=== PATIENT | female | born 1940 | race Caucasian/White ===

== ENCOUNTER → 2021-03-28 | Outpatient (CLI) | payer MEDICARE ==
[~2021-03-28] MED LIST: ACHYD1T PO; AMLO-251 PO; CLOP75TA28 PO; FAMO40TA72 PO; LOSA1TAB23 PO; PANT40TA52 PO; SUCR1TAB PO; TRAM50TA3 PO
--- NOTE | 2021-04-04 08:06 | Diagnostic Imaging Report ---
INDICATION: Esophageal cancer, initial staging. TECHNIQUE: The serum blood glucose level at the time of injection was 89 mg/dL. The patient was administered 13.9 mCi of F-18 FDG intravenously in the right antecubital location and PET imaging was performed from the top of the skull to the mid thighs. A noncontrast CT was also performed for attenuation correction and anatomic correlation. COMPARISON: No prior PET/CT studies are available for comparison. Correlation is made with a conventional outside CT from 03/03/2021. FINDINGS: There is symmetric activity throughout the brain. The soft tissues of the neck are unremarkable. There is hypermetabolic activity involving the distal esophagus where the patient also has a large hiatal hernia. The SUV max is 7.6 and likely represents patient's known recently diagnosed esophageal malignancy. No other mediastinal hyperactivity is seen; however, there is significant consolidation in the right middle lobe with air bronchograms seen on the outside CT. A portion of this is hypermetabolic with an SUV max of 10, suggestive of malignancy as well. No other pulmonary parenchymal hyperactivity is seen. The abdomen and pelvis demonstrate physiologic activity throughout the GI and tracts. No suspicious region of hypermetabolism is identified. IMPRESSION: Increased metabolic activity involving the distal esophagus is consistent with the known recently diagnosed malignancy. In addition, there is abnormal metabolic activity in the right middle lobe. There is significant consolidation as well as air bronchograms at this location. While a portion of this may be inflammatory/infectious, underlying malignancy could not be entirely excluded. Close CT chest followup after a course of therapy would be recommended. Dictated by: Dictated on workstation # [id number]
== END ==
LOC: RAD 14:26
PROVIDERS: ATTEND Radiology Radiation Oncology
DX: C15.9 Malignant neoplasm of esophagus, unspecified (principal)
CPT/HCPCS: 78815; A9552

== ENCOUNTER 2021-04-03 05:41 | Outpatient (CLI) | payer MEDICARE ==
[~2021-04-03] VITALS: Ht 165.1 cm; Wt 87.7 kg
[2021-04-03] MEDS ORDERED: ACHYD1T PO (12:58)
[2021-04-03] MEDS ORDERED: CLOP75TA28 PO (12:58)
[2021-04-03] MEDS ORDERED: SUCR1TAB PO (12:58)
[2021-04-03] MEDS ORDERED: AMLO-251 PO (12:58)
[2021-04-03] MEDS ORDERED: PANT40TA52 PO (12:58)
[2021-04-03] MEDS ORDERED: FAMO40TA72 PO (12:58)
[2021-04-03] MEDS ORDERED: TRAM50TA3 PO (12:58)
[2021-04-03] MEDS ORDERED: LOSA1TAB23 PO (12:58)
== END 2021-04-03 13:02 | disposition home or self-care (01) ==
LOC: PREOP 05:41
PROVIDERS: ATTEND Surgery
DX: Z01.818 Encounter for other preprocedural examination (principal)

== ENCOUNTER 2021-04-05 07:20 | Day surgery (SDC) | payer MEDICARE ==
[~2021-04-05] VITALS: Ht 165 cm; Wt 87.7 kg
[2021-04-05] VITALS (9 sets, daily range): BP systolic 132–166; BP diastolic 58–77
--- OUTSIDE RECORDS SUMMARY | 2021-04-05 07:23 | XMS REPORT | Clinical Summary ---
Author Author [facility] Organization [facility] Address Unknown Phone Unavailable Care Team Providers Care Parts Sales Manager Name Role Phone PCP Unavailable Allergies Not on File Medications Not on file Active Problems Not on file Social History Date Tobacco Use Types Packs/Day Years Used Never Assessed Sex Assigned at Date Recorded Not on file Last Filed Vital Signs Not on file Plan of Treatment Not on file Results Not on filefrom Last 3 Months
--- OUTSIDE RECORDS SUMMARY | 2021-04-05 07:24 | XMS REPORT | Encounter Summary ---
Author Author [facility] Organization [facility] Address Unknown Phone Unavailable Care Team Providers Care Sonar Watchstander Name Role Phone Rashmi Rock NP Unavailable Rashmi Rock NP PCP Matthew Woods MD Unavailable Gurvinder Chan MD Unavailable Reason for Referral * Radiology Services (Routine) - New Request Diagnoses / Procedures Referred By Contact [facility] Diagnoses Malignant neoplasm of esophagus, unspecified location (HCC) Malignant neoplasm of lower third of esophagus (HCC) Procedures NM PET SCAN TORSO (SKULL-THIGHS) Gold Shipley MD [address] [address] Radiology Referral ID Status Reason Start Date Expiration Visits Vi sits Date Requested Authorized [id number] New Request 03/21/2021 03/21/2022 7 7 SSIBILITY LIFT TECHNICIAN Encounter Details Care Team Description Date Type Department Gold Shipley MD [address] [id number] Malignant neoplasm of esophagus, unspeci fied location (HCC) (Primary Dx); Malignant neoplasm of lower third of esophagus (HCC) 03/21/2021 Orders Only Cardiothoracic Surg nito: [facility] [address] [facility] [address] [place] [address] Social History Date Tobacco Use Types Packs/Day Years Used Never Smoker Smokeless Tobacco: Never Used Comments Alcohol Use Standard Drinks/Week No 0 (1 standard drink = 0.6 o z pure alcohol) Sex Assigned at Date Recorded Female 03/21/2021 9:32 AM ACCESSIBILITY LIFT TECHNICIAN documented as of this encounter Functional Status Date of Assessment Functional Status Response 12/31/2016 Does the patient have a hearing impairment: Yes documented as of this encounter Plan of Treatment Order Schedule Name Type Priority Associated Diag noses Expected: 03/28/2021 (Approximate), Expi res: 03/21/2022 NM PET SCAN TORSO Imaging Routine Malignant ne oplasm of (SKULL-THIGHS) esophagus, unspecified location (HCC) Malignant neoplasm of lower third of esophagus (HCC) documented as of this encounter Visit Diagnoses Diagnosis Malignant neoplasm of esophagus, unspec ified location (HCC) - Primary Malignant neoplasm of lower third of es ophagus (HCC) Malignant neoplasm of lower third of es ophagus documented in this encounter Additional Health Concerns Noted Time Assessment 03/20/2021 5:00 PM ACCESSIBILITY LIFT TECHNICIAN A fall risk assessment has been complet ed for the patient documented as of this encounter Care Teams Start Date End Date Sonar Watchstander Relationship Specialty 03/21/21 Rashmi Rock NP PCP - General Nurse [address] [place] [address] , Family 03/20/21 Rashmi Rock NP Nurse [address] [place] [address] , Family 03/21/21 Matthew Woods MD Hematology & [address] [facility] [place] [address] 03/21/21 Gurvinder Chan MD [facility] [address] [place] [address] [address] [address] documented as of this encounter
--- OUTSIDE RECORDS SUMMARY | 2021-04-05 07:24 | XMS REPORT | Encounter Summary ---
Author Author [facility] Organization [facility] Address Unknown Phone Unavailable Care Team Providers Care Planer Setter Name Role Phone Rashmi Rock NP Unavailable Rashmi Rock NP PCP Matthew Woods MD Unavailable Gurvinder Chan MD Unavailable Reason for Visit * Reason Comments New Patient * Consult, Test & Treat (Routine) - New Request Diagnoses / Procedures Referred By Contact Referred To [facility] Specialty Matthew Woods MD [address] [place] [address] Gold Shipley MD [address] [address] Cardiothoracic Surgery Referral ID Status Reason Start Date Expiration Visits Vi sits Date Requested Authorized [id number] New Request 03/20/2021 03/20/2022 1 1 Encounter Details Care Team Description Date Type Department Gold Shipley MD [address] [facility] [place] [address] History of fundoplication (Primary Dx); 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); Physical deconditioning; Other chronic pain 03/22/2021 Office Visit Cardiothoracic Surg nito: [facility] [address] [facility] [address] [place] [id number] Social History Date Tobacco Use Types Packs/Day Years Used Never Smoker Smokeless Tobacco: Never Used Comments Alcohol Use Standard Drinks/Week No 0 (1 standard drink = 0.6 o z pure alcohol) Sex Assigned at Date Recorded Female 03/21/2021 9:32 AM TONGUE AND GROOVE MACHINE SETTER Date Recorded COVID-19 Exposure Response 03/22/2021 9:22 AM TONGUE AND GROOVE MACHINE SETTER In the last month, have you been in contact with No / Unsure someone who was confirmed or suspected to have Coronavirus / COVID-19? documented as of this encounter Last Filed Vital Signs Reading Time Taken Comments Vital Sign 136/70 03/22/2021 10:50 AM TONGUE AND GROOVE MACHINE SETTER Blood Pressure 104 03/22/2021 10:50 AM TONGUE AND GROOVE MACHINE SETTER Pulse 36.6 C (97.8 F) 03/22/2021 10:50 AM TONGUE AND GROOVE MACHINE SETTER Temperature - - Respiratory Rate 98% 03/22/2021 10:50 AM TONGUE AND GROOVE MACHINE SETTER Oxygen Saturation - - Inhaled Oxygen Concentration 87.6 kg (193 lb 3.2 oz) 03/22/2021 10:50 AM TONGUE AND GROOVE MACHINE SETTER Weight 165.1 cm (5' 5") 03/22/2021 10:50 AM TONGUE AND GROOVE MACHINE SETTER Height 32.15 03/22/2021 10:50 AM TONGUE AND GROOVE MACHINE SETTER Body Mass Index documented in this encounter Functional Status Date of Assessment Functional Status Response 12/31/2016 Does the patient have a hearing impairment: Yes documented as of this encounter Progress Notes * Gold Shipley MD - 03/22/2021 10:30 AM TONGUE AND GROOVE MACHINE SETTER Images from the original note were not included. Date of Service: 03/22/2021 Name: Connie Shukla : 1940 Referring Provider: Matthew Woods PCP: Rashmi Rock Via [facility] - PCP: Dr. Gabriel Davis - Other: Dr. Gurvinder Chan - [facility] - [phone] Location of Films: PACS Location of Pathology: [facility] 02/20/21 - Chief Complaint Patient presents with New Patient History of Present Illness Connie Shukla is a 80 y.o. female who presents for surgical evaluation of newly diag nosed gastric/esophageal cancer, adenocarcinoma, staged T3N1 by outside EUS. History of Present Illness: 80yo female s/p Laparoscopic exploration and lysis of adhesions followed by a le ft thoracotomy and a Elissa-Belsey fundoplication on 12/31/16 at due to recurr ent hernia after prior Anna Marie. She reports about 3 weeks following the surgery s he developed significant heart burn. Then a couple months ago it became harder t o swallow both food and water. She reports that she has a lot of back pain, specifically after a fall in 2019 s he has a lot in the right hip which she finds it hard to deal with. She recently finished Z mackenzie prescribed for apparent pneumonia noted on the recent CT chest. She has not yet started treatment. She reports dysphagia to solid foods. She als o reports history of appendectomy and afterward having trouble with abdominal pa in which required a large incision for exploratory laparotomy and that significa nt adhesiolysis was performed. Last evening she had a series of loose dark color ed bowel movements which is concerning to her due to history of a significant up per GI bleed in 2019. She has history of TIA several years ago for which she sti ll takes Plavix. She denies cough, hemoptysis, shortness of air, chest pain, a bdominal pain, fevers, chills, night sweats, unintentional weight loss, new head aches, and bone pain. PMH: GERD, fundoplication x 2, Rivera's esophagus, TIA, dysphagia. 02/20/21 - CEA = 5.3 02/20/21 - UPPER ENDOSCOPY w/BX - mass at GE junction - PATHOLOGY - gastric cardia- invasive well diff adenocarcinoma arising within a background of Rivera's mucosa STAGING 03/03/21 - CT CHEST/ABD/PELVIS - no evidence of metastatic disease - thickened d istal esophagus - RML consolidation consistent with pneumonia. 03/13/21 - UPPER EUS - GE junction tumor that extended from the distal esophagus into the cardia - mass involves 1/2 to 2/3 of the luminal surface - T3 lesion. T wo high suspicious nodes immediately adjacent to the tumor - 04/12/21 - PET scheduled to be done in [place] Patient has consults set up in [place] with Dr. Woods (04/13) and a radiation oncologist there. History Medical History: Diagnosis Date Arthritis Rivera's esophagus Dysphagia Failed fundoplication H/O degenerative disc disease Hiatal hernia Hyperlipidemia Hypertension TIA (transient ischemic attack) 07/2015 multiple others Surgical History: Procedure Laterality Date FOOT SURGERY Right 1996 plantar fascitits MANOMETRY ESOPHAGEAL N/A 09/27/2016 Performed by Cris Guerra MD at [facility] 24Hr Ph Probe N/A 09/27/2016 Performed by Cris Guerra MD at [facility] EXPLORATORY LAPAROSCOPY N/A 12/31/2016 Performed by Gold Shipley MD at [facility] CVOR THORACOTOMY WITH ELISSA BELSEY FUNDOPLICATION Left 12/31/2016 Performed by Gold Shipley MD at [facility] CVOR ESOPHAGOGASTRODUODENOSCOPY N/A 07/03/2017 Performed by Gold Shipley MD at [facility] CVOR CARDIAC CATHERIZATION Normal 1987 GASTRIC FUNDOPLICATION 2002 approx HIP REPLACEMENT Bilateral 2000, 2007 left-2000, right-2007 HX APPENDECTOMY Social History Socioeconomic History Marital status: Spouse name: Not on file Number of children: Not on file Years of education: Not on file Highest education level: Not on file Occupational History Not on file Tobacco Use Smoking status: Never Smoker Smokeless tobacco: Never Used Substance and Sexual Activity Alcohol use: No Drug use: Never Sexual activity: Not on file Other Topics Concern Not on file Social History Narrative Not on file Family History Problem Relation Age of Onset Heart Failure Mother Diabetes Mother Other Mother umbilical hernia ruptured Allergies Allergen Reactions Penicillins HIVES and DIZZINESS Contrast Dye Iv, Iodine Containing [Iodinated Contrast Media] HIVES renograffin 1987 Crestor [Rosuvastatin] MUSCLE PAIN Zocor [Simvastatin] MUSCLE PAIN Avinza [Morphine] NAUSEA ONLY Immunization History Administered Date(s) Administered COVID-19 (MODERNA), mRNA vacc, 100 mcg/0.5 mL (PF) 07/06/2020, 08/03/2020 Medications: amLODIPine (NORVASC) 10 mg tablet Take 10 mg by mouth daily. cholecalciferol (VITAMIN D-3) 1,000 units tablet Take 1,000 Units by mouth d aily. clopiDOGrel (PLAVIX) 75 mg tablet Take 75 mg by mouth daily. docusate (COLACE) 100 mg capsule Take 100 mg by mouth twice daily. fish oil- omega 3-DHA/EPA 300/1,000 mg capsule Take 1 capsule by mouth daily . HYDROcodone/acetaminophen (NORCO) 5/325 mg tablet Take 1 tablet by mouth shmuel ry 4 hours as needed for Pain losartan-hydrochlorothiazide (HYZAAR) 100-25 mg tablet Take 1 Tab by mouth e very morning. meclizine (ANTIVERT) 25 mg tablet Take 25 mg by mouth three times daily as n eeded for Dizziness. Indications: MOTION SICKNESS ondansetron (ZOFRAN) 4 mg tablet Take 4 mg by mouth every 8 hours as needed for Nausea or Vomiting. ranitidine(+) (ZANTAC) 300 mg tablet Take 300 mg by mouth at bedtime daily. tramadol(#) (ULTRAM) 5 mg/mL suspension Take 10-20 mL by mouth every 6 hours as needed. I have reviewed the [facility] meds and they are correct. Anti-coagulation: clopidogrel (Plavix) Occupation: retired Functional Assessment ECOG Performance Status: 1, Restricted in physically strenuous activity but ambu latory and able to carry out work of a light or sedentary nature, e.g., light ho use work, office work Pain Scale (0 = No Pain, 10 = Severe Pain): 0 Comments/Interventions: n/a Clinical Nutrition Status PO Intake compared to normal: Dysphagia to solids Weight loss last 3 months: 0 lbs Estimated body mass index is 32.15 kg/m as calculated from the following: Height as of this encounter: 1.651 m (5' 5"). Weight as of this encounter: 87.6 kg (193 lb 3.2 oz). BMI class: Obesity 1 (30 to <35) Patient demonstrates no malnutrition ROS Review of Systems Constitutional: Negative. HENT: Negative. Eyes: Negative. Cardiovascular: Negative. Respiratory: Positive for cough and sputum production. Endocrine: Negative. Hematologic/Lymphatic: Negative. Skin: Negative. Musculoskeletal: Negative. Gastrointestinal: Negative. Genitourinary: Negative. Neurological: Negative. Psychiatric/Behavioral: Negative. Allergic/Immunologic: Negative. Review of systems Obtained from patient Physical Exam Constitutional: She appears well-developed and well-nourished. HENT: Head: Normocephalic. Cardiovascular: Normal rate, regular rhythm and normal heart sounds. Pulmonary/Chest: Effort normal and breath sounds normal. Musculoskeletal: General: Normal range of motion. Cervical back: Neck supple. Lymphadenopathy: She has no cervical adenopathy. Neurological: She is alert and oriented to person, place, and time. Skin: Skin is warm and dry. Psychiatric: She has a normal mood and affect. Her behavior is normal. Judgment and thought content normal. Objective Vitals: 03/22/21 1050 BP: 136/70 Pulse: 104 Temp: 36.6 C (97.8 F) SpO2: 98% Lab Results No pertinent labs Summary of Studies Reviewed: as above in HPI Primary Diagnosis: Encounter Diagnoses Name Primary? 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 Tumor is malignant Assessment and Plan 1. History of fundoplication 2. 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 Physical deconditioning 4. Other chronic pain Dr. Gold Shipley has reviewed this patient's most recent procedures and history and will speak to her oncologist. Esophagectomy may present a challenge due to her prior Elissa-Belsey fundoplication. She also admits to being physica lly deconditioned and having trouble with her chronic back and hip pain. Dr. Phong Shipley will reach out to her oncologist directly to discuss her case . Bhavana Argueta, ZAKI-Judi Thoracic Surgery and Lung Cancer Screening I personally performed the davis portions of the E/M visit, discussed case with Nu rse Practitioner and concur with documentation of history, physical exam, assess ment, and treatment plan unless otherwise noted. My synopsis: This is a 80-year-old patient known to me. Several years ago I had treated her for very large hiatal hernia utilizing a Elissa Belsey strategy. The patient re ports that she had excellent reflux control for several years. She sought the a ttention of her primary care physician after experiencing dysphagia within the l ast 2 months. She is ultimately diagnosed with what appears to be locally advan vishal esophageal cancer. I am also concerned about the infiltrative process in he r right middle lobe. She has no symptoms of pneumonia. She is completing a cou rse of antibiotics. The PET scan has not been completed. I am concerned that s he has far more advanced stage disease. The most important aspect of our meeting today was to discuss her performance st atus. She is markedly limited in her activities. She has barely leaving her ho me. She is unable to walk around her local [employer]. After assessing the patien t's activities of daily living, I do not think that she would be fit for treatme nt incorporating major esophageal resection. Nor does she or her think that she would tolerate a major intervention. I will speak with her oncologist regarding these issues. Is unclear to me if she would even tolerate a definitiv e chemotherapy and radiation strategy. I had the opportunity speak with Dr. Daniel who will be her oncologist. Given the Elissa gastroplasty, tumor that is felt to be at the "GE junction" may in fa ct be well below the cardia of the stomach. What we are seeing may in fact to b e a true gastric cancer. This may determine optimal chemotherapy regimen. 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 Take with food. documented as of this encounter Additional Health Concerns Noted Time Assessment 03/22/2021 10:47 AM TONGUE AND GROOVE MACHINE SETTER A fall risk assessment has been complet ed for the patient 03/22/2021 10:49 AM TONGUE AND GROOVE MACHINE SETTER PHQ-2 Depression Total Score: 0 documented as of this encounter Care Teams Start Date End Date Planer Setter Relationship Specialty 03/21/21 Rashmi Rock NP PCP - General Nurse [address] [place] [address] , Family 03/20/21 Rashmi Rock NP Nurse [address] [place] [address] , Family 03/21/21 Matthew Woods MD Hematology & [address] [facility] [place] [address] 03/21/21 Gurvinder Chan MD [facility] [address] [place] [address] DR [address] [address] documented as of this encounter
--- OUTSIDE RECORDS SUMMARY | 2021-04-05 07:24 | XMS REPORT | Encounter Summary ---
Author Author [facility] Organization [facility] Address Unknown Phone Unavailable Care Team Providers Care Nurse General Duty Name Role Phone Rashmi Rock NP Unavailable Rashmi Rock NP PCP Matthew Woods MD Unavailable Gurvinder Chan MD Unavailable Reason for Visit * Radiology Services (Routine) - Authorized Diagnoses / Procedures [facility]erred By [facility] Malignant neoplasm of esophagus, unspecified location (HCC) Procedures IR PORTACATH PLACEMENT IR CENTRAL VENOUS CATHETER Gold Shipley MD [address] [facility] [place] [address] [facility] Ir [address] [facility] [address], [address] [place] [address] Radiology Referral ID Status Reason Start Date Expiration Visits Vi sits Date Requested Authorized [id number] Authorized 03/21/2021 03/21/2022 1 1 Encounter Details Care Team Description Date Type Department Gold hSipley MD [address] [facility] [address] [place] [address] Canceled (Office-Referring provider liz davalos) 03/28/2021 Hospital Interventional Radi ology: Encounter [facility] [address] [facility] [address], [address] [place] [address] Social History Date Tobacco Use Types Packs/Day Years Used Never Smoker Smokeless Tobacco: Never Used Comments Alcohol Use Standard Drinks/Week No 0 (1 standard drink = 0.6 o z pure alcohol) Sex Assigned at Date Recorded Female 03/21/2021 9:32 AM BEHAVIORAL HEALTH THERAPIST Date Recorded COVID-19 Exposure Response 03/22/2021 9:22 AM BEHAVIORAL HEALTH THERAPIST In the last month, have you been in contact with No / Unsure someone who was confirmed or suspected to have Coronavirus / COVID-19? documented as of this encounter Functional Status Date of Assessment Functional Status Response 12/31/2016 Does the patient have a hearing impairment: Yes documented as of this encounter Medications at Time of Discharge Start Date End Date Medication Sig Dispensed Refills amLODIPine (NORVASC) 10 Take 10 mg by 0 mg tablet mouth daily. cholecalciferol (VITAMIN Take 1,000 0 D-3) 1,000 units tablet Units by mouth daily. clopiDOGrel (PLAVIX) 75 Take 75 mg by 0 mg tablet mouth daily. docusate (COLACE) 100 mg Take 100 mg 0 capsule by mouth twice daily. fish oil- omega 3-DHA/EPA Take 1 0 300/1,000 mg capsule capsule by mouth daily. HYDROcodone/acetaminophen Take 1 tablet 0 (NORCO) 5/325 mg tablet by mouth every 4 hours as needed for Pain losartan-hydrochlorothiaz Take 1 Tab by 0 elle (HYZAAR) 100-25 mg mouth every tablet morning. meclizine (ANTIVERT) 25 Take 25 mg by 0 mg tabletIndications: mouth three motion sickness times daily as needed for Dizziness. Indications: MOTION SICKNESS ondansetron (ZOFRAN) 4 mg Take 4 mg by 0 tablet mouth every 8 hours as needed for Nausea or Vomiting. ranitidine(+) (ZANTAC) Take 300 mg 0 300 mg tablet by mouth at bedtime daily. 01/05/2017 tramadol(#) (ULTRAM) 5 Take 10-20 mL 400 mL 0 mg/mL suspension by mouth every 6 hours as needed. documented as of this encounter Discharge Disposition Code Departure Means Destination Disposition Home Home or Self Care documented in this encounter Progress Notes * Wilber Dodd RN - 03/28/2021 9:00 AM BEHAVIORAL HEALTH THERAPIST Interventional Radiology Outpatient Scheduling Checklist 1. Name of Procedure(s): Port Placement. Appointment scheduled by Seda Michelle with [facility]. Patient will come to IR from [facility] around 0800 and will need to return once Recovery is completed. Leave port accessed. 2. Date of Procedure: 03/28/2021 3. Arrival Time: Approx 0800 from [facility] 4. Procedure Time: 0900 5. Correct Procedural Room Assignment: [facility] Room #3 6. Blood Thinners Triaged and instructed per protocol: Y/N/NA: Patient on Pl avix. [facility] will manage. Confirmed accurate instructions sent to patient: Y/N: NO 7. Procedure Order Verified: Y/N: Yes 9. Patient instructed to have a rental car ferry driver: Y/N/NA: Yes 10. Patient instructed on NPO status: Y/N/NA: Yes Defer to [facility] usually Midni ght Confirmed accurate instructions sent to patient: Y/N: NO 11. Specimen needed: Y/N/NA: NO Verified Order placed: Y/N: N/A 12. Allergies Verified: Y/N: Yes 13. Is there an Iodine Allergy: Y/N: YES Does the Procedure Require contrast: Y/N: NO If so, was the IR- Contrast Allergy Pre-Procedure Medication protocol ordered: Y /NA: NA 14. Does the patient have labs according to IR Pre-procedure Laboratory Paramet er policy: Y/N/NA: Yes If No, was the patient instructed to obtain labs prior to procedure: Y/N/NA: NA 15. Will the patient need to be admitted or have a possible admission: Y/N: No If yes, confirmed accurate instructions sent to patient: Y/N/NA: NA 16. Patient States Understanding: Y/N: Yes 17. History of GREG: Y/N: Unknown If yes, confirm request to bring CPAP sent to patient: Y/N/NA: NA 18. Does the patient have an insulin pump or continuous glucose monitor? Y/N Un known If yes, was the patient instructed that this will need to be removed for this p rocedure and to bring supplies to reapply once the procedure is complete? Y/N 19. Patient was sent electronic procedure instructions: Y/N: NO [facility]OR will daniels dle communication with patient. VIORAL HEALTH THERAPIST documented in this encounter Plan of Treatment Not on filedocumented as of this encounter Visit Diagnoses Not on filedocumented in this encounter Additional Health Concerns Noted Time Assessment 03/22/2021 10:47 AM BEHAVIORAL HEALTH THERAPIST A fall risk assessment has been complet ed for the patient 03/22/2021 10:49 AM BEHAVIORAL HEALTH THERAPIST PHQ-2 Depression Total Score: 0 documented as of this encounter Care Teams Start Date End Date Nurse General Duty Relationship Specialty 03/21/21 Rashmi Rock NP PCP - General Nurse [address] [place] [phone] , Family 03/20/21 Rashmi Rock NP Nurse [address] [place] [address] , Family 03/21/21 Matthew Woods MD Hematology & [address] [facility] [place] [address] 03/21/21 Gurvinder Chan MD [facility] [address] [place] [address] [address] [address] documented as of this encounter
--- OUTSIDE RECORDS SUMMARY | 2021-04-05 07:24 | XMS REPORT | Encounter Summary ---
Author Author [facility] Organization [facility] Address Unknown Phone Unavailable Care Team Providers Care International Travel Consultant Name Role Phone Rashmi Rock NP Unavailable Rashmi Rock NP PCP Matthew Woods MD Unavailable Gurvinder Chan MD Unavailable Encounter Details Care Team Description Date Type Department 03/22/2021 Travel Social History Date Tobacco Use Types Packs/Day Years Used Never Smoker Smokeless Tobacco: Never Used Comments Alcohol Use Standard Drinks/Week No 0 (1 standard drink = 0.6 o z pure alcohol) Sex Assigned at Date Recorded Female 03/21/2021 9:32 AM TURKEY PINNER Date Recorded COVID-19 Exposure Response 03/22/2021 9:22 AM TURKEY PINNER In the last month, have you been in contact with No / Unsure someone who was confirmed or suspected to have Coronavirus / COVID-19? documented as of this encounter Functional Status Date of Assessment Functional Status Response 12/31/2016 Does the patient have a hearing impairment: Yes documented as of this encounter Plan of Treatment Not on filedocumented as of this encounter Visit Diagnoses Not on filedocumented in this encounter Additional Health Concerns Noted Time Assessment 03/22/2021 10:47 AM TURKEY PINNER A fall risk assessment has been complet ed for the patient 03/22/2021 10:49 AM TURKEY PINNER PHQ-2 Depression Total Score: 0 documented as of this encounter Care Teams Start Date End Date International Travel Consultant Relationship Specialty 03/21/21 Rashmi Rock NP PCP - General Nurse [address] [place] [phone] , Family 03/20/21 Rashmi Rock NP Nurse [address] [place] , Family 03/21/21 Matthew Woods MD Hematology & [address] [facility] [place] [address] 03/21/21 Gurvinder Chan MD [facility] [address] [address] documented as of this encounter
--- OUTSIDE RECORDS SUMMARY | 2021-04-05 07:24 | XMS REPORT | Encounter Summary ---
Author Author [facility] Organization [facility] Address Unknown Phone Unavailable Care Team Providers Care Fitter / Welder Name Role Phone Rashmi Rock NP Unavailable Rashmi Rock NP PCP Matthew Woods MD Unavailable Gurvinder Chan MD Unavailable Reason for Referral * Radiology Services (Routine) - Authorized Diagnoses / Procedures Referred By [facility] Malignant neoplasm of esophagus, unspecified location (HCC) Procedures IR PORTACATH PLACEMENT IR CENTRAL VENOUS CATHETER Gold Shipley MD [address] [facility] [address] [place] [address] 2 Ir [address] [facility] [address], [address] [place] [address] Radiology Referral ID Status Reason Start Date Expiration Visits Vi sits Date Requested Authorized [id number] Authorized 03/21/2021 03/21/2022 1 1 HER FLESHER Encounter Details Care Team Description Date Type Department Seda Michelle, NANCY Malignant neoplasm of esophagus, unspeci fied location (HCC) (Primary Dx) 03/21/2021 Orders Only Cardiothoracic Surg nito: [facility], [facility] [address] [facility] [address] [place] [address] Social History Date Tobacco Use Types Packs/Day Years Used Never Smoker Smokeless Tobacco: Never Used Comments Alcohol Use Standard Drinks/Week No 0 (1 standard drink = 0.6 o z pure alcohol) Sex Assigned at Date Recorded Female 03/21/2021 9:32 AM LEATHER FLESHER documented as of this encounter Functional Status Date of Assessment Functional Status Response 12/31/2016 Does the patient have a hearing impairment: Yes documented as of this encounter Plan of Treatment Order Schedule Name Type Priority Associated Diag noses Expected: 03/21/2021 (Approximate), Expi res: 03/21/2022 IR PORTACATH PLACEMENT Imaging Routine Maligna nt neoplasm of esophagus, unspecified location (HCC) documented as of this encounter Visit Diagnoses Diagnosis Malignant neoplasm of esophagus, unspec ified location (HCC) - Primary documented in this encounter Additional Health Concerns Noted Time Assessment 03/20/2021 5:00 PM LEATHER FLESHER A fall risk assessment has been complet ed for the patient documented as of this encounter Care Teams Start Date End Date Fitter / Welder Relationship Specialty 03/21/21 Rashmi Rock NP PCP - General Nurse [address] [place] [phone] , Family 03/20/21 Rashmi Rock NP Nurse [address] [place] [address] , Family 03/21/21 Matthew Woods MD Hematology & [address] [facility] [place] [address] 03/21/21 Gurvinder Chan MD [facility] [address] [place] [address] [address] [address] documented as of this encounter
--- OUTSIDE RECORDS SUMMARY | 2021-04-05 07:24 | XMS REPORT | Clinical Summary ---
Author Author [facility] Organization [facility] Address Unknown Phone Unavailable Care Team Providers Care Crushing Machine Operator Name Role Phone Rashmi Rock NP Unavailable Rashmi Rock NP PCP Matthew Woods MD Unavailable Gurvinder Chan MD Unavailable Source Comments Some departments are not documenting in the electronic medical record. If you d o not see the information that you expected, contact Release of Information in [facility] [employer] Information Management department at [phone] for further assistan ce in locating additional records.[facility] Allergies Comments Active Allergy Reactions Severity Noted Date Morphine NAUSEA ONLY Low 10/02/2016 renograffin 1988 Iodinated Contrast Media HIVES Medium 10/22 Rosuvastatin MUSCLE PAIN Medium 10/02/2016 Penicillins HIVES, High 09/27/2016 DIZZINESS Simvastatin MUSCLE PAIN Medium 10/02/2016 Medications End Date Status Medication Sig Dispensed Refills Start Date Active clopiDOGrel (PLAVIX) 75 Take 75 mg by 0 mg tablet mouth daily. Active ranitidine(+) (ZANTAC) Take 300 mg 0 300 mg tablet by mouth at bedtime daily. Active ondansetron (ZOFRAN) 4 mg Take 4 mg by 0 tablet mouth every 8 hours as needed for Nausea or Vomiting. Active meclizine (ANTIVERT) 25 Take 25 mg by 0 mg tabletIndications: mouth three motion sickness times daily as needed for Dizziness. Indications: MOTION SICKNESS Active amLODIPine (NORVASC) 10 Take 10 mg by 0 mg tablet mouth daily. Active losartan-hydrochlorothiaz Take 1 Tab by 0 elle (HYZAAR) 100-25 mg mouth every tablet morning. Active HYDROcodone/acetaminophen Take 1 tablet 0 (NORCO) 5/325 mg tablet by mouth every 4 hours as needed for Pain Active fish oil- omega 3-DHA/EPA Take 1 0 300/1,000 mg capsule capsule by mouth daily. Active cholecalciferol (VITAMIN Take 1,000 0 D-3) 1,000 units tablet Units by mouth daily. Active tramadol(#) (ULTRAM) 5 Take 10-20 mL 400 mL 0 0 mg/mL suspension by mouth 7 every 6 hours as needed. Active docusate (COLACE) 100 mg Take 100 mg 0 capsule by mouth twice daily. 03/24/2021 Discontinued aspirin EC 81 mg tablet Take 81 mg by 0 mouth daily. Take with food. 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 Added automatically from request for gianluca ruckernito [id number] History of fundoplication 12/19/2016 Overview: Formatting of this note might be differ ent from the original. 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); Physical deconditioning; Other chronic pain 03/22/2021 Office Visit Cardiothoracic Surg nito 03/22/2021 Travel Seda Michelle, NANCY Malignant neoplasm of esophagus, unspeci fied location (HCC) (Primary Dx) 03/21/2021 Orders Only Cardiothoracic Surg Gold Benavides MD Malignant neoplasm of esophagus, unspeci fied location (HCC) (Primary Dx); Malignant neoplasm of lower third of esophagus (HCC) 03/21/2021 Orders Only Cardiothoracic Surg Gold Benavides MD Navigation Assessment 03/20/2021 Telephone Cardiothoracic Surg nito from Last 3 Months Immunizations Name Administration Dates Next Due COVID-19 (MODERNA), mRNA 08/03/2020, 07/06/2020 vacc, 100 mcg/0.5 mL (PF) Surgical History Surgery Date Site/Laterality Comments GASTRIC FUNDOPLICATION 2002 approx HX APPENDECTOMY CARDIAC CATHERIZATION Normal 1988 HIP REPLACEMENT 2000, 2007 Bilateral left-2000, rig ht-2007 FOOT SURGERY 05/06/1996 - Right plantar fasciti ts 05/05/1997 UPPER GASTROINTESTINAL 07/03/2017 Esophagus/N/A ESOPHAG OGASTRODUODENOSCOPY performed by ENDOSCOPY Gold Shipley MD at [facility] LAPAROSCOPY 12/31/2016 N/A EXPLORATORY LAP AROSCOPY performed by Gold Shipley MD at [facility] THORACOTOMY 12/31/2016 Left THORACOTOMY WIT H ELISSA BELSEY FUNDOPLICATION performed by Gold Shipley MD at [facility] ESOPHAGEAL MOTILITY STUDY 09/27/2016 N/A MANO METRY ESOPHAGEAL performed by Cris Guerra MD at ENDO/GI PH PROBE 09/27/2016 N/A 24Hr Ph Probe p erformed by Cris Guerra MD at ENDO/GI Medical History Medical History Date Comments Hypertension Hyperlipidemia Rivera's esophagus Dysphagia Hiatal hernia Failed fundoplication H/O degenerative disc disease TIA (transient ischemic attack) 07/2015 multip le others Arthritis Family History Medical History Relation Name Comments Diabetes Mother Heart Failure Mother Other Mother umbilical hernia ru ptured Relation Name Status Comments Mother Social History Date Tobacco Use Types Packs/Day Years Used Never Smoker Smokeless Tobacco: Never Used Comments Alcohol Use Standard Drinks/Week No 0 (1 standard drink = 0.6 o z pure alcohol) Sex Assigned at Date Recorded Female 03/21/2021 9:32 AM SOCK MENDER Date Recorded COVID-19 Exposure Response 03/22/2021 9:22 AM SOCK MENDER In the last month, have you been in contact with No / Unsure someone who was confirmed or suspected to have Coronavirus / COVID-19? Last Filed Vital Signs Reading Time Taken Comments Vital Sign 136/70 03/22/2021 10:50 AM SOCK MENDER Blood Pressure 104 03/22/2021 10:50 AM SOCK MENDER Pulse 36.6 C (97.8 F) 03/22/2021 10:50 AM SOCK MENDER Temperature - - Respiratory Rate 98% 03/22/2021 10:50 AM SOCK MENDER Oxygen Saturation - - Inhaled Oxygen Concentration 87.6 kg (193 lb 3.2 oz) 03/22/2021 10:50 AM SOCK MENDER Weight 165.1 cm (5' 5") 03/22/2021 10:50 AM SOCK MENDER Height 32.15 03/22/2021 10:50 AM SOCK MENDER Body Mass Index Plan of Treatment Health Maintenance Due Date Last Done Comments MEDICARE ANNUAL WELLNESS 1940 VISIT DTAP/TDAP VACCINES (1 - 1960 Tdap) HEPATITIS C SCREENING 1960 PHYSICAL (COMPREHENSIVE) 1960 EXAM SHINGLES RECOMBINANT 1992 VACCINE (1 of 2) OSTEOPOROSIS 12/15/2007 SCREENING/MONITORING PNEUMONIA (PPSV23) 12/15/2007 VACCINE (1 of 1 - PPSV23) INFLUENZA VACCINE 12/04/2020 COVID-19 VACCINE (3 - 02/02/2021 08/03/2020, Booster for Moderna 07/06/2020 series) Implants Device Identifier Shelf Expiration Date Model / Serial / L ot Implanted Type Area Manufactur er Hip Rods And Pins Description: Bilaterally Results Not on filefrom Last 3 Months Insurance Type Payer Benefit Subscriber ID Effective Phone Address Plan / Dates Group Medicare HUMANA MEDICARE HUMANA [id number] 2020-P [phone] [address] [address] [address] [place] [address] [address] [place] (Home) [place] [phone] Advance Directives 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 01/05/2017 3:12 PM Full Code 12/31/2016 7:24 AM Provider has discussed Code Status Yes w/Patient or Family? Care Teams Start Date End Date Crushing Machine Operator Relationship Specialty 03/21/21 Rashmi Rock NP PCP - General Nurse [address] [place] [phone] , Family 03/20/21 Rashmi Rock NP Nurse [address] [place] [address] , Family 03/21/21 Matthew Woods MD Hematology & [address] [facility] [place] [address] 03/21/21 Gurvinder Chan MD [facility] [address] [place] [address] [address] [address]
--- OUTSIDE RECORDS SUMMARY | 2021-04-05 07:24 | XMS REPORT | Encounter Summary ---
Author Author [facility] Organization [facility] Address Unknown Phone Unavailable Care Team Providers Care Labeling Strategist Name Role Phone Rashmi Rock NP Unavailable Rashmi Rock NP PCP Matthew Woods MD Unavailable Gurvinder Chan MD Unavailable Reason for Referral * Consult, Test & Treat (Urgent) - New Request Diagnoses / Procedures Referred By Contact Referred To Conta ct Specialty Diagnoses Malignant neoplasm of lower third of esophagus (HCC) Weight loss, unintentional Dysphagia, unspecified type Gold Shipley MD [address] [facility] [place] [address] Cc - Ww Cl Exm/Proc Rm [address] [place], [place] Cardiothoracic Surgery Referral ID Status Reason Start Date Expiration Visits Vi sits Date Requested Authorized [id number] New Request Specialty Services 03/21/2021 03/21/2022 1 1 Required Comments Patient is having trouble swallowing food or water due to esophageal cancer. Could radiological health specialist give her a call or she is being seen in Dr. Shipley's clinic tomorrow at 1030. States she has lost about 25 pounds - may be having surgery soon. 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 Reason for Visit * Reason Onset Date Comments Navigation Assessment 03/20/2021 Encounter Details Care Team Description Date Type Department Gold Shipley MD [address] [facility] [address] [place] [address] Navigation Assessment 03/20/2021 Telephone Cardiothoracic Surg nito: [facility] [address] [place] [id number] Social History Date Tobacco Use Types Packs/Day Years Used Never Smoker Smokeless Tobacco: Never Used Comments Alcohol Use Standard Drinks/Week No 0 (1 standard drink = 0.6 o z pure alcohol) Sex Assigned at Date Recorded Female 03/21/2021 9:32 AM 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 documented as of this encounter Functional Status Date of Assessment Functional Status Response 12/31/2016 Does the patient have a hearing impairment: Yes documented as of this encounter Miscellaneous Notes * Telephone Encounter - Debo Rubin RN - 03/20/2021 5:49 PM 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 Physician Info: Referring Physician: Dr. Matthew Woods Contact Name & Number: Tr[facility] -[phone] Surgeon: Dr. Gold Shipley - CTS PCP: Dr. Gabriel Davis / Rashmi Rock REALTIME REPORTER - [facility] Int [facility] - [phone] Other: Dr. Gurvinder Chan - [facility] - [phone] Location of Films: PACS Location of Pathology: [facility] 02/20/21 - notify nurse navigator Debo [phone], if path reviewed needed. History of Present Illness: 80yo female s/p Laparoscopic exploration and lysis of adhesions followed by a le ft thoracotomy and a Delio-Belsey fundoplication on 12/31/16 at . She reports about 3 weeks following the surgery she developed significant heart burn. Then a couple months ago it became harder to swallow both food and water. 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 T wo high suspicious nodes immediately adjacent to the tumor - full report in outs elle records 04/12/21 - PET scheduled to be done in [place] Patient has consults set up in [place] with Dr. Woods and a radiation oncolog ist there Prior Treatment (XRT, Surgery, Chemotherapy): none Allergies reviewed and verified with the patient, and documented in Epic: Yes Comments: Spoke with patient and informed her of date, time and location of lamonte ointment. Patient verbalized understanding. Unable to send patient guide since s he doesn't have email and her appointment is 03/22. COVID-19 guidelines reviewed with patient, including: visitor and universal mask ing policies, and a temperature check at the facility entrance upon arrival. Received two Moderna Covid vaccinations. Has not received her booster as her PCP wasn't sure if she should receive it due to impending cancer treatment. NEEDS Assessment: Genetic Counseling: Genetic Assessment: Patients with two close family members diagnosed with cancer (up to 1st cousin and great aunt or uncle) (Brother with prostate; Brother with leukemia) Genetic Intervention: Other (Comment) (After sees [facility] provider, determine if gene tic referral needed) Nutrition: Current Weight (in pounds): 195 Recent Weight Loss Without Trying?: Yes, 24-33 lb. Eating Poorly Due to Decreased Appetite?: Yes Score: Malnutrition Screening Tool (MST): 4 Additional Nutrition Assessment: Other (Comment) (Pain when tries to eat; diffic ult to swallow) Nutrition Intervention: Provided information about available services;Referral p laced to Loan Examiner Social & Financial: Social and Financial Assessment: Financial Concerns;Reports adequate support sys tem;No needs identified Tobacco assessment last 30 days: Patient has not used tobacco products within th e last 30 days Social and Financial Intervention: Provided information about available services ;Services declined at this time Spiritual & Emotional: Spiritual and Emotional Assessment: Reports feeling and/or sounds anxious, worri ed or irritable;Reports adequate support system Spiritual and Emotional Intervention: Emotional Support provided;Provided inform ation about available services Physical: Fall Risk: None identified Pain Score: Zero Fatigue Scale: 9 Physical Needs Intervention: Patient encouraged to use subwarehouse supervisor services for appoin tment(s);Services declined at this time Communication: Communication Barrier: No Onc Fertility: Onc Fertility Assessment: Female patient is postmenopausal or has had hysterecto my Patient Education Education provided to: patient Preferred method: oral instruction;written instruction Are learners ready to learn?: Yes Are there barriers to learning?: No Phase of patient's treatment: Pre-Treatment Topics Discussed Topics discussed: fatigue;financial concerns;diagnostic tests;psychology service s;social organization professor Ph # given to patient for follow up: Yes Education Details Educated by: telephone Ed time: 20 min Learner's response: The patient expressed understanding of what was explained to them, participated and agreed with the present plan.;The patient denies need. 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 documented in this encounter Plan of Treatment Order Schedule Name Type Priority Associated Diag noses Ordered: 03/21/2021 AMB REFERRAL TO CUSTOMS DIRECTOR Outpatient [facility] neoplasm of Referral lower third of esophagus (HCC) Weight loss, unintentional Dysphagia, unspecified type documented as of this encounter Visit Diagnoses Diagnosis Malignant neoplasm of lower third of es ophagus (HCC) - Primary Malignant neoplasm of lower third of es ophagus Weight loss, unintentional Loss of weight Dysphagia, unspecified type documented in this encounter Additional Health Concerns Noted Time Assessment 03/20/2021 5:00 PM 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
[2021-04-05] MEDS ORDERED: ONDANSETRON 4 MG/2 ML (SDV) Z0FRAN IV ONE (08:00)
[2021-04-05] MEDS ORDERED: FAMOTIDINE 20MG/2ML IV (PEPCID) IV ONE (08:00)
[2021-04-05] MEDS: LACTATED RINGERS 1,000 ML IV PRN ×3 (08:04→10:14)
[2021-04-05] MEDS ORDERED: 0.9% SODIUM CHLORIDE PF INJ 20 ML VIAL ONE (08:14)
[2021-04-05] MEDS ORDERED: LIDOCAINE/EPI 1%-1:100,000 (XYLOCAINE) 20ML ONE (08:14)
[2021-04-05] MEDS ORDERED: HEParin (CENTRAL IV FLUSH) 500 UNIT/5 ML SYR ONE (08:14)
[2021-04-05] MEDS ORDERED: CLINDAMYCIN 600 MG/50 ML IVPB 50 ML IV ONE ×2 (08:15→08:32)
--- NOTE | 2021-04-05 08:17 | Progress Note-Pre Operative ---
Pre-Operative Progress Note H&P Reviewed The H&P was reviewed, patient examined and no changes noted. Time Seen by Provider: 08:09 Date H&P Reviewed: Apr 05, 2021 Time H&P Reviewed: 08:09 Pre-Operative Diagnosis: Esophageal CA, Venous insufficiency FARIBA ALDRIDGE DO Apr 05, 2021 08:17
[2021-04-05] MEDS ORDERED: MIDAZOLAM 2 MG/2 ML (VERSED) VIAL ONE (08:24)
[2021-04-05] MEDS ORDERED: PROPOFOL INJECTION 50 ML IV ONE ×2 (08:24→10:25)
[2021-04-05] MEDS ORDERED: fentaNYL INJ 100 MCG/2 ML AMP ONE (08:24)
--- NOTE | 2021-04-05 10:38 | Diagnostic Imaging Report ---
EXAMINATION: Fluoroscopy, 1 hour. INDICATION: Port-A-Cath insertion. TECHNIQUE: Fluoroscopic assistance was provided for Dr. Josh Ignacio during his Port-A-Cath insertion procedure. 17.8 seconds of fluoroscopy time was utilized. FINDINGS: There is a Port-A-Cath in place on the right. The tip of the catheter is difficult to visualize but seems to be in the region of the distal superior vena cava. Contrast was injected into the Port-A-Cath and its cine loop reveals that there does appear to be opacification of the superior vena cava and the innominate vein. Consequently, I suspect that the tip of the catheter is in good position. A followup chest exam would be recommended for further study, however. IMPRESSION: Fluoroscopic assistance was provided for Dr. Ignacio. Recommendations as above. Dictated by: Dictated on workstation # [id number]
--- NOTE | 2021-04-05 10:43 | Anesthesia-General Post-Op ---
MAC Patient Condition Mental Status/LOC: Same as Preop Cardiovascular: Satisfactory Nausea/Vomiting: Absent Respiratory: Satisfactory Pain: Controlled Complications: Absent Post Op Complications Complications None Follow Up Care/Instructions Patient Instructions None needed. Anesthesiology Discharge Order Discharge Order Patient is doing well, no complaints, stable vital signs, no apparent adverse anesthesia problems. No complications reported per nursing. CARLOS HORAN CRNA Apr 05, 2021 10:43
--- NOTE | 2021-04-05 11:09 | Progress Note-Post Operative ---
Post-Operative Progess Note Surgeon (s)/Rn Interventional (s) Surgeon FARIBA ALDRIDGE DO Rn Interventional: JOSÉ AndrewsII Pre-Operative Diagnosis Esophageal CA, Venous insufficiency Post-Operative Diagnosis same Procedure & Operative Findings Date of Procedure 04/05/21 Procedure Performed/Findings Des-Cath Placement PEG tube placement PROCEDURE: The patient was taken to the operating suite, was prepped and draped in the sterile fashion. A surgical pause was performed. Local anesthetic was infiltrated at the clavicle and along the tract to the right anterior chest, where more local was placed so the pocket could be created. Using an 18 gauge finder needle with negative inspiration the right subclavian vein was accessed on the first attempt and dark nonpulsatile blood was withdrawn. The wire was inserted and fluoroscopy assured proper placement. The needle was removed. The regular wire was inserted and fluoroscopy assured proper placement. The wire was then secured. A #11 blade scalpel was used to make an incision over the right chest and along guidewire. Cautery was used to dissect down to the pectoral fascia. A pocket was created with blunt dissection. The dilator sheath was then advanced over the wire under fluoroscopy and the dilator and wire were removed. The Groshong catheter was inserted through the sheath and the sheath was then removed. The Groshong wire was removed. The catheter was then tunneled to the right chest pocket. Fluoroscopy was used to cut to length and this was then attached to the port which was then placed within the pocket. The port was then accessed without difficulty. It was then flushed with saline and then heparin. The subcutaneous tissues were then reapproximated using 3-0 Vicryl. Finally the skin was closed with 4-0 undyed monocryl, 3 interrupted sutures. The areas were then washed and dried. Skin Affix was placed over incision. The insertion point of the neck Skin Affix was placed over the incision. PROCEDURE: The patient was in the operating room. He had just had a port placed and then I started the EGD, placed down the mouth into esophagus, through the esophagus into the stomach. Took a picture of the cancer on the way past. His abdomen was prepped and draped. Local lidocaine was used to infiltrate the skin and then made a stab incision with #11 blade, advanced the needle directly into the stomach. I was then able to grasp the catheter. Wire was then placed through and this was then pulled this out, attached the PEG tube to this wire and then pulled this down back through the mouth, esophagus, into the stomach. I followed it down with EGD scope, pulled this up to the abdominal wall, able to twist easily. It was in at about 5 cm, put some iodine gel on the stomach and then placed the drain sponge and then placed the bolster over the PEG tube, cut off the end and then attached the distal portion. The area was then cleaned and dried, dressing placed. Sponge, instrument and needle count correct at the end of the case. The patient tolerated the procedure well without complication and was taken to recovery room in stable condition. Anesthesia Type IV sedation by REBAR BENDER Estimated Blood Loss Estimated blood loss (mL): less than 10ml, scant during PEG Specimens/Packing Specimens Removed none FARIBA ALDRIDGE DO Apr 05, 2021 11:09
--- NOTE | 2021-04-05 11:17 | Discharge Inst-Surgical ---
Discharge Inst-Surgical Depart Medication/Instructions New, Converted or Re-Newed RX: Other (Use home meds) Activity Activity as Tolerated: Yes Driving Instructions: No Driving/Refer to Dr. Nagy Discharge Diet: No Restrictions Diet After 24 Hours: Clear Liquid if Nauseous If Any Problems/Questions/Issu: Contact Your Physician, Go to Emergency Room Skin/Wound Care Infection Signs and Symptoms: Increased Redness, Foul Odor of Wound, Increased Drainage, Skin Itchy or Has a Rash, Increased Swelling, Temperature Above 101 F Bathing Instructions: Shower Stitches/Chelo/Dermabond Dis: FARIBA Read DO Apr 05, 2021 11:17
--- NOTE | 2021-04-05 12:36 | Diagnostic Imaging Report ---
HISTORY: Port placement TECHNIQUE: Frontal view of the chest. COMPARISON: PET scan from 03/28/2021 FINDINGS: There is airspace consolidation in the right lung base, as seen on the prior PET/CT. No pleural effusion or pneumothorax is seen. The right Port-A-Cath tip projects over the mid SVC. IMPRESSION: 1. The tip of the right Port-A-Cath projects over the mid SVC. 2. Persistent right basilar consolidation. Dictated by: Dictated on workstation # [id number]
== END 2021-04-05 12:35 | disposition home or self-care (01) ==
LOC: SDC 07:20
PROVIDERS: ATTEND Surgery
DX: C15.9 Malignant neoplasm of esophagus, unspecified (principal); I87.2 Venous insufficiency (chronic) (peripheral); E78.5 Hyperlipidemia, unspecified; I10 Essential (primary) hypertension; E78.00 Pure hypercholesterolemia, unspecified; K21.9 Gastro-esophageal reflux disease without esophagitis; M54.9 Dorsalgia, unspecified; Z79.891 Long term (current) use of opiate analgesic; Z86.73 Personal history of transient ischemic attack (TIA), and cerebral infarction without residual deficits; Z79.02 Long term (current) use of antithrombotics/antiplatelets; Z11.2 Encounter for screening for other bacterial diseases; Z96.643 Presence of artificial hip joint, bilateral; Z96.651 Presence of right artificial knee joint; Z79.899 Other long term (current) drug therapy; Z88.0 Allergy status to penicillin
CPT/HCPCS: 36561; 43246; 71045; 76000; 87081; C1788

== ENCOUNTER 2021-05-04 13:56 | Outpatient (RCR) | payer MEDICARE ==
[2021-03-27 11:55] LABS: CREATININE SERUM 0.9 MG/DL (0.60-1.30)
== END 2021-05-05 | disposition home or self-care (01) ==
LOC: ONC 13:56
PROVIDERS: ATTEND Internal Medicine Hematology & Oncology
DX: Z51.0 Encounter for antineoplastic radiation therapy (principal); C15.9 Malignant neoplasm of esophagus, unspecified; I87.2 Venous insufficiency (chronic) (peripheral)
CPT/HCPCS: 82565; 84520; G0463; 77300; 77301; 77334; 77336; 77338; 77386; 77470; 99205; 99214

== ENCOUNTER 2021-05-10 13:48 | Outpatient (RCR) | payer MEDICARE ==
[~2021-05-10] VITALS: Ht 165.1 cm; Wt 83.5 kg
[~2021-05-10 13:48] MED LIST changes: +D5W 500 ML IV (CANCER CTR) 500 ML IV SCH; +FOSAPREPITANT (CANCER CENTER) 150 MG in NS (IVPB) CANCER CENTER ONLY 150 ML IV SCH; +LEUCOVORIN CALCIUM 600 MG in D5W 250 ML IVPB (CANCER CTR) 250 ML IV SCH; +OXALIPLATIN 100 MG, OXALIPLATIN (GENERIC) 30 MG in D5W 250 ML IVPB (CANCER CTR) 250 ML IV SCH; +fluorouraciL 3,000 MG in NS (IVPB) CANCER CENTER 87.2 ML IV SCH
== END 2021-05-19 08:18 | disposition home or self-care (01) ==
LOC: ONC 13:48
PROVIDERS: ATTEND Internal Medicine Hematology & Oncology
DX: Z51.0 Encounter for antineoplastic radiation therapy (principal); C16.0 Malignant neoplasm of cardia; C78.01 Secondary malignant neoplasm of right lung
CPT/HCPCS: 77386; G0463; 77336; 99214

== ENCOUNTER → 2021-05-25 | Outpatient (CLI) | payer MEDICARE ==
[~2021-05-25] MED LIST changes: -D5W 500 ML IV (CANCER CTR) 500 ML IV SCH; -FOSAPREPITANT (CANCER CENTER) 150 MG in NS (IVPB) CANCER CENTER ONLY 150 ML IV SCH; +HOLD METFORMIN - RECEIVED CONTRAST 20 ML VIAL IV SCH; +IOHEXOL 350 MG/ML 100 ML (OMNIPAQUE 350) VIAL IV ONE; -LEUCOVORIN CALCIUM 600 MG in D5W 250 ML IVPB (CANCER CTR) 250 ML IV SCH; +NS 100 ML (IVPB) BAG IV ONE; -OXALIPLATIN 100 MG, OXALIPLATIN (GENERIC) 30 MG in D5W 250 ML IVPB (CANCER CTR) 250 ML IV SCH; -fluorouraciL 3,000 MG in NS (IVPB) CANCER CENTER 87.2 ML IV SCH
--- NOTE | 2021-05-25 15:50 | Diagnostic Imaging Report ---
PROCEDURE: CT chest, abdomen, and pelvis with contrast. TECHNIQUE: Multiple contiguous axial images were obtained through the chest, abdomen, and pelvis after the administration of intravenous contrast. Auto Exposure Controls were utilized during the CT exam to meet ALARA standards for radiation dose reduction. INDICATION: Esophageal carcinoma. COMPARISON: Correlation is made to PET imaging of 03/28/2021. CT CHEST: Irregular consolidation with air bronchograms in the medial segment of the right middle lobe has not appreciably changed when compared to previous study. In addition, there is continued subpleural density in the left lung base along the inferior, lateral major fissure. Otherwise, there is no evidence of new pulmonary mass or infiltrate. No significant pleural or pericardial fluid is identified. There is continued mural thickening at the distal esophagus adjacent to surgical suture. No pathologically enlarged adenopathy is seen within the thorax. There are coronary artery calcifications. IMPRESSION: Infiltrative density in the right middle lobe is again identified and is likely inflammatory although given persistence since 03/28/2021, consideration could be given to bronchoscopic assessment. Nodular focus in the left lung base is also stable and demonstrated no hypermetabolism on the previous study. CT ABDOMEN/PELVIS: There is low-density in the liver indicating steatosis. No gallbladder, pancreatic, splenic or adrenal gland abnormality is identified. Kidneys are also stable with minimal peripheral cortical cysts. There is no hydronephrosis. There has been placement of gastrostomy tube to the anterior abdominal wall. No pathologically enlarged adenopathy is identified. There is no evidence of bowel obstruction or free fluid in the abdomen or pelvis. Bilateral hip prostheses result in significant beam Yusuf artifact limiting assessment of the pelvis. IMPRESSION: Hepatic steatosis and interval placement of gastrostomy tube. Otherwise, there is no evidence of acute abnormality or convincing evidence of metastatic disease within the abdomen or pelvis. Dictated by: Dictated on workstation # [id number]
== END ==
LOC: RAD 13:15
PROVIDERS: ATTEND Internal Medicine
DX: C16.0 Malignant neoplasm of cardia (principal); K76.0 Fatty (change of) liver, not elsewhere classified; R91.8 Other nonspecific abnormal finding of lung field; Z93.1 Gastrostomy status
CPT/HCPCS: 71260; 74177

== ENCOUNTER 2021-05-29 09:50 | Outpatient (RCR) | payer MEDICARE ==
[2021-05-25 13:25] LABS: BASOPHILS % (AUTO) 1 % (0-10); EOSINOPHILS # (AUTO) 0.3 10^3/uL (0.0-0.3); EOSINOPHILS % (AUTO) 4 % (0-10); HEMATOCRIT 39 % (35-52); LYMPHOCYTES # (AUTO) 1.8 10^3/uL (1.0-4.0); LYMPHOCYTES % (AUTO) 24 % (12-44); MEAN CORPUSCULAR HEMOGLOBIN 30 pg (25-34); MEAN CORPUSCULAR HGB CONC 33 g/dL (32-36); MEAN CORPUSCULAR VOLUME 91 fL (80-99); MEAN PLATELET VOLUME 9.3 fL (9.0-12.2); MONOCYTES # (AUTO) 1.1 10^3/uL (0.0-1.0); MONOCYTES % (AUTO) 15 % (0-12); NEUTROPHILS # (AUTO) 4.1 10^3/uL (1.8-7.8); NEUTROPHILS % (AUTO) 56 % (42-75); PLATELET COUNT 264 10^3/uL (130-400); WHITE BLOOD COUNT 7.4 10^3/uL (4.3-11.0)
[2021-05-25 13:49] LABS: ALBUMIN 3.6 GM/DL (3.2-4.5); BILIRUBIN,TOTAL 0.3 MG/DL (0.1-1.0); CALCIUM 10.2 MG/DL (8.5-10.1); CREATININE SERUM 0.86 MG/DL (0.60-1.30); POTASSIUM 4.2 MMOL/L (3.6-5.0); TOTAL PROTEIN 7.3 GM/DL (6.4-8.2)
[~2021-05-29] VITALS: Ht 165.1 cm; Wt 73.0 kg
[~2021-05-29 09:50] MED LIST changes: +D5W 500 ML IV (CANCER CTR) 500 ML IV SCH; +D5W IV SCH; +FLUOROURACIL IV SCH; +FOSAPREPITANT (CANCER CENTER) 150 MG in NS (IVPB) CANCER CENTER ONLY 150 ML IV SCH; -HOLD METFORMIN - RECEIVED CONTRAST 20 ML VIAL IV SCH; -IOHEXOL 350 MG/ML 100 ML (OMNIPAQUE 350) VIAL IV ONE; -NS 100 ML (IVPB) BAG IV ONE; +NS IV SCH; +OXALIPLATIN IV SCH
[2021-05-29] MEDS ORDERED: NS IV 1000 ML (CANCER CTR) 1,000 ML ONE (10:08)
[2021-05-29] MEDS ORDERED: FAMOTIDINE 20MG/2ML IV (CANCER CTR) ONE (10:08)
[2021-05-29] MEDS ORDERED: diphenhydrAMINE 50 MG/ML INJ (CANCER CENTER) ONE ×2 (10:08→11:37)
[2021-05-29] MEDS ORDERED: diphenhydrAMINE 50 MG/ML INJ (CANCER CENTER) IV PRN (11:30)
[2021-05-29] MEDS ORDERED: FAMOTIDINE 20MG/2ML IV (CANCER CTR) IV SCH (11:30)
[2021-05-29] MEDS ORDERED: methylPREDNISolone 125 MG/2 ML (SOLU-MEDROL) CANCER CTR ONE (11:37)
[2021-05-29] MEDS ORDERED: diphenhydrAMINE 25 MG TAB (BENADRYL) CANCER CENTER PO SCH (13:00)
== END 2021-06-05 | disposition home or self-care (01) ==
LOC: ONC 09:50
PROVIDERS: ATTEND Internal Medicine
DX: Z51.11 Encounter for antineoplastic chemotherapy (principal); C16.0 Malignant neoplasm of cardia; C78.01 Secondary malignant neoplasm of right lung
CPT/HCPCS: 80053; 85025; 96367; 96375; 96413; 96415; 96416; 99213

== ENCOUNTER 2021-06-30 13:57 | Outpatient (RCR) | payer MEDICARE ==
[2021-06-14 14:10] LABS: BASOPHILS % (AUTO) 1 % (0-10); EOSINOPHILS # (AUTO) 0.1 10^3/uL (0.0-0.3); EOSINOPHILS % (AUTO) 2 % (0-10); HEMATOCRIT 34 % (35-52); HEMOGLOBIN 11.2 g/dL (11.5-16.0); LYMPHOCYTES # (AUTO) 2.1 10^3/uL (1.0-4.0); LYMPHOCYTES % (AUTO) 45 % (12-44); MEAN CORPUSCULAR HEMOGLOBIN 30 pg (25-34); MEAN CORPUSCULAR HGB CONC 33 g/dL (32-36); MEAN CORPUSCULAR VOLUME 89 fL (80-99); MEAN PLATELET VOLUME 9.4 fL (9.0-12.2); MONOCYTES # (AUTO) 1.2 10^3/uL (0.0-1.0); MONOCYTES % (AUTO) 26 % (0-12); NEUTROPHILS # (AUTO) 1.2 10^3/uL (1.8-7.8); NEUTROPHILS % (AUTO) 26 % (42-75); PLATELET COUNT 237 10^3/uL (130-400); WHITE BLOOD COUNT 4.7 10^3/uL (4.3-11.0)
[2021-06-14 14:41] LABS: ALBUMIN 3.3 GM/DL (3.2-4.5); BILIRUBIN,TOTAL 0.4 MG/DL (0.1-1.0); CALCIUM 8.9 MG/DL (8.5-10.1); CREATININE SERUM 0.83 MG/DL (0.60-1.30); POTASSIUM 3.8 MMOL/L (3.6-5.0); TOTAL PROTEIN 6.7 GM/DL (6.4-8.2)
[2021-06-26 10:33] LABS: BASOPHILS % (AUTO) 0 % (0-10); EOSINOPHILS # (AUTO) 0.1 10^3/uL (0.0-0.3); EOSINOPHILS % (AUTO) 1 % (0-10); HEMATOCRIT 31 % (35-52); LYMPHOCYTES # (AUTO) 1.7 10^3/uL (1.0-4.0); LYMPHOCYTES % (AUTO) 36 % (12-44); MEAN CORPUSCULAR HEMOGLOBIN 30 pg (25-34); MEAN CORPUSCULAR HGB CONC 33 g/dL (32-36); MEAN CORPUSCULAR VOLUME 90 fL (80-99); MEAN PLATELET VOLUME 9.5 fL (9.0-12.2); MONOCYTES # (AUTO) 0.9 10^3/uL (0.0-1.0); MONOCYTES % (AUTO) 20 % (0-12); NEUTROPHILS % (AUTO) 43 % (42-75); PLATELET COUNT 156 10^3/uL (130-400); WHITE BLOOD COUNT 4.7 10^3/uL (4.3-11.0)
[2021-06-26 11:02] LABS: ALBUMIN 3.5 GM/DL (3.2-4.5); BILIRUBIN,TOTAL 0.3 MG/DL (0.1-1.0); CALCIUM 9.6 MG/DL (8.5-10.1); CREATININE SERUM 0.79 MG/DL (0.60-1.30); POTASSIUM 3.8 MMOL/L (3.6-5.0); TOTAL PROTEIN 6.6 GM/DL (6.4-8.2)
[~2021-06-30 13:57] MED LIST changes: +FAMOTIDINE 20MG/2ML IV (CANCER CTR) IV SCH; +diphenhydrAMINE 25 MG TAB (BENADRYL) CANCER CENTER PO SCH
== END 2021-07-03 | disposition home or self-care (01) ==
LOC: ONC 13:57
PROVIDERS: ATTEND Internal Medicine
DX: Z51.11 Encounter for antineoplastic chemotherapy (principal); C16.0 Malignant neoplasm of cardia; C78.01 Secondary malignant neoplasm of right lung
CPT/HCPCS: 36591; 80053; 82378; 85025; 86301; 96375; 96413; 96415; 99213

== ENCOUNTER 2021-07-28 14:29 | Outpatient (RCR) | payer MEDICARE ==
[2021-07-12 12:53] LABS: BASOPHILS % (AUTO) 0 % (0-10); EOSINOPHILS # (AUTO) 0.1 10^3/uL (0.0-0.3); EOSINOPHILS % (AUTO) 1 % (0-10); HEMATOCRIT 33 % (35-52); HEMOGLOBIN 10.9 g/dL (11.5-16.0); LYMPHOCYTES # (AUTO) 1.8 10^3/uL (1.0-4.0); LYMPHOCYTES % (AUTO) 38 % (12-44); MEAN CORPUSCULAR HEMOGLOBIN 30 pg (25-34); MEAN CORPUSCULAR HGB CONC 33 g/dL (32-36); MEAN CORPUSCULAR VOLUME 89 fL (80-99); MEAN PLATELET VOLUME 9.1 fL (9.0-12.2); MONOCYTES # (AUTO) 1.2 10^3/uL (0.0-1.0); MONOCYTES % (AUTO) 25 % (0-12); NEUTROPHILS # (AUTO) 1.7 10^3/uL (1.8-7.8); NEUTROPHILS % (AUTO) 35 % (42-75); PLATELET COUNT 175 10^3/uL (130-400); WHITE BLOOD COUNT 4.8 10^3/uL (4.3-11.0)
[2021-07-12 13:15] LABS: ALBUMIN 3.3 GM/DL (3.2-4.5); BILIRUBIN,TOTAL 0.4 MG/DL (0.1-1.0); CALCIUM 9.7 MG/DL (8.5-10.1); CREATININE SERUM 0.8 MG/DL (0.60-1.30); POTASSIUM 3.7 MMOL/L (3.6-5.0); TOTAL PROTEIN 6.7 GM/DL (6.4-8.2)
[2021-07-26 12:28] LABS: BASOPHILS % (AUTO) 1 % (0-10); EOSINOPHILS # (AUTO) 0.1 10^3/uL (0.0-0.3); EOSINOPHILS % (AUTO) 2 % (0-10); HEMATOCRIT 33 % (35-52); HEMOGLOBIN 10.8 g/dL (11.5-16.0); LYMPHOCYTES # (AUTO) 2.1 10^3/uL (1.0-4.0); LYMPHOCYTES % (AUTO) 42 % (12-44); MEAN CORPUSCULAR HEMOGLOBIN 30 pg (25-34); MEAN CORPUSCULAR HGB CONC 33 g/dL (32-36); MEAN CORPUSCULAR VOLUME 90 fL (80-99); MEAN PLATELET VOLUME 9.7 fL (9.0-12.2); MONOCYTES # (AUTO) 1.4 10^3/uL (0.0-1.0); MONOCYTES % (AUTO) 28 % (0-12); NEUTROPHILS # (AUTO) 1.3 10^3/uL (1.8-7.8); NEUTROPHILS % (AUTO) 27 % (42-75); PLATELET COUNT 153 10^3/uL (130-400); WHITE BLOOD COUNT 4.9 10^3/uL (4.3-11.0)
[2021-07-26 12:48] LABS: ALBUMIN 3.3 GM/DL (3.2-4.5); BILIRUBIN,TOTAL 0.3 MG/DL (0.1-1.0); CALCIUM 10.2 MG/DL (8.5-10.1); CREATININE SERUM 0.84 MG/DL (0.60-1.30); POTASSIUM 4.1 MMOL/L (3.6-5.0); TOTAL PROTEIN 6.7 GM/DL (6.4-8.2)
== END 2021-08-03 | disposition home or self-care (01) ==
LOC: ONC 14:29
PROVIDERS: ATTEND Internal Medicine
DX: Z51.11 Encounter for antineoplastic chemotherapy (principal); Z45.2 Encounter for adjustment and management of vascular access device; C16.0 Malignant neoplasm of cardia; C78.01 Secondary malignant neoplasm of right lung
CPT/HCPCS: 36591; 80053; 82378; 85025; 86301; 96367; 96375; 96413

== ENCOUNTER → 2021-07-31 | Outpatient (CLI) | payer MEDICARE ==
[~2021-07-31] MED LIST changes: -D5W 500 ML IV (CANCER CTR) 500 ML IV SCH; -D5W IV SCH; -FAMOTIDINE 20MG/2ML IV (CANCER CTR) IV SCH; -FLUOROURACIL IV SCH; -FOSAPREPITANT (CANCER CENTER) 150 MG in NS (IVPB) CANCER CENTER ONLY 150 ML IV SCH; -NS IV SCH; -OXALIPLATIN IV SCH; -diphenhydrAMINE 25 MG TAB (BENADRYL) CANCER CENTER PO SCH
--- NOTE | 2021-07-31 13:55 | Diagnostic Imaging Report ---
INDICATION: Malignant neoplasm of the cardioesophageal junction, restaging. TECHNIQUE: Serum blood glucose level at the time of injection was 101 mg/dL. The patient was administered 13.5 mCi of F-18 FDG intravenously in the right antecubital location and PET imaging was performed from the top of the skull to the mid thighs. A noncontrast CT was performed for attenuation correction and anatomic correlation. COMPARISON: PET/CT from 03/28/2021. FINDINGS: Symmetric activity throughout the brain is noted. The soft tissues of the neck are unremarkable. There is some residual activity noted at the GE junction corresponding with the patient's known esophageal neoplasm. The SUV max is 4.4 compared with 7.6 on the prior exam. The opacity in the right middle lobe does appear to be improved on today's study but does persist. There is a residual area of consolidation or mass with an SUV max of 4.0. No hilar hypermetabolism is identified. There is physiologic activity throughout the GI and tracts of the abdomen and pelvis. No suspicious hypermetabolism is seen. IMPRESSION: Overall improved PET/CT study when compared to the prior exam from 03/28/2021. The overall degree of hypermetabolism at the GE junction has decreased. In addition, the abnormal opacity in the right middle lobe shows some improvement as well. No new abnormality is identified. Dictated by: Dictated on workstation # [id number]
== END ==
LOC: RAD 10:19
PROVIDERS: ATTEND Internal Medicine
DX: C16.0 Malignant neoplasm of cardia (principal)
CPT/HCPCS: 78815; A9552

== ENCOUNTER 2021-08-23 12:34 | Outpatient (RCR) | payer MEDICARE ==
[2021-08-21 11:07] LABS: BASOPHILS % (AUTO) 1 % (0-10); EOSINOPHILS # (AUTO) 0.1 10^3/uL (0.0-0.3); EOSINOPHILS % (AUTO) 2 % (0-10); HEMATOCRIT 35 % (35-52); HEMOGLOBIN 11.2 g/dL (11.5-16.0); LYMPHOCYTES # (AUTO) 1.5 10^3/uL (1.0-4.0); LYMPHOCYTES % (AUTO) 23 % (12-44); MEAN CORPUSCULAR HEMOGLOBIN 30 pg (25-34); MEAN CORPUSCULAR HGB CONC 33 g/dL (32-36); MEAN CORPUSCULAR VOLUME 94 fL (80-99); MEAN PLATELET VOLUME 9.4 fL (9.0-12.2); MONOCYTES # (AUTO) 1.5 10^3/uL (0.0-1.0); MONOCYTES % (AUTO) 22 % (0-12); NEUTROPHILS # (AUTO) 3.5 10^3/uL (1.8-7.8); NEUTROPHILS % (AUTO) 52 % (42-75); PLATELET COUNT 263 10^3/uL (130-400); WHITE BLOOD COUNT 6.8 10^3/uL (4.3-11.0)
[2021-08-21 12:35] LABS: ALBUMIN 3.1 GM/DL (3.2-4.5); BILIRUBIN,TOTAL 0.3 MG/DL (0.1-1.0); CALCIUM 9.2 MG/DL (8.5-10.1); CREATININE SERUM 0.8 MG/DL (0.60-1.30); POTASSIUM 3.7 MMOL/L (3.6-5.0); TOTAL PROTEIN 6.4 GM/DL (6.4-8.2)
[~2021-08-23] VITALS: Ht 165.1 cm; Wt 82.1 kg
[~2021-08-23 12:34] MED LIST changes: +D5W 500 ML IV SOLUTION 500 ML IV SCH; +D5W IV SCH; +FAMOTIDINE 20MG/2ML IV (PEPCID) IV ONE; +FAMOTIDINE 20MG/2ML IV (PEPCID) ONE; +FLUOROURACIL IV SCH; +FOSAPREPITANT (CANCER CENTER) 150 MG in NS (IVPB) CANCER CENTER ONLY 150 ML IV SCH; +HEParin (CENTRAL IV FLUSH) 500 UNIT/5 ML SYR IV PRN; +NS IV SCH; +OXALIPLATIN IV SCH; +PALONOSETRON HCL 0.25 MG, dexAMETHasone INJECTION 10 MG in NS (IVPB) 50 ML IV SCH; +diphenhydrAMINE 25 MG TAB (BENADRYL) PO SCH
[2021-09-04 12:46] LABS: BASOPHILS % (AUTO) 0 % (0-10); EOSINOPHILS # (AUTO) 0.1 10^3/uL (0.0-0.3); EOSINOPHILS % (AUTO) 1 % (0-10); HEMATOCRIT 34 % (35-52); HEMOGLOBIN 11.3 g/dL (11.5-16.0); LYMPHOCYTES # (AUTO) 1.4 10^3/uL (1.0-4.0); LYMPHOCYTES % (AUTO) 16 % (12-44); MEAN CORPUSCULAR HEMOGLOBIN 31 pg (25-34); MEAN CORPUSCULAR HGB CONC 33 g/dL (32-36); MEAN CORPUSCULAR VOLUME 94 fL (80-99); MEAN PLATELET VOLUME 9.3 fL (9.0-12.2); MONOCYTES # (AUTO) 1.9 10^3/uL (0.0-1.0); MONOCYTES % (AUTO) 21 % (0-12); NEUTROPHILS # (AUTO) 5.5 10^3/uL (1.8-7.8); NEUTROPHILS % (AUTO) 61 % (42-75); PLATELET COUNT 257 10^3/uL (130-400)
[2021-09-04 13:03] LABS: ALBUMIN 3.5 GM/DL (3.2-4.5); BILIRUBIN,TOTAL 0.3 MG/DL (0.1-1.0); CALCIUM 10.1 MG/DL (8.5-10.1); CREATININE SERUM 0.82 MG/DL (0.60-1.30); POTASSIUM 3.9 MMOL/L (3.6-5.0); TOTAL PROTEIN 7.2 GM/DL (6.4-8.2)
== END 2021-09-02 | disposition home or self-care (01) ==
LOC: ONC 12:34
PROVIDERS: ATTEND Internal Medicine
DX: Z51.11 Encounter for antineoplastic chemotherapy (principal); Z45.2 Encounter for adjustment and management of vascular access device; C16.0 Malignant neoplasm of cardia; C78.01 Secondary malignant neoplasm of right lung; D64.9 Anemia, unspecified; R20.8 Other disturbances of skin sensation
CPT/HCPCS: 80053; 85025; 96360; 96375; 96413; 96521; G0463; 36591; 99213

== ENCOUNTER → 2021-10-03 | Outpatient (RCR) | payer MEDICARE ==
[2021-09-04 12:46] LABS: BASOPHILS % (AUTO) 0 % (0-10); EOSINOPHILS # (AUTO) 0.1 10^3/uL (0.0-0.3); EOSINOPHILS % (AUTO) 1 % (0-10); HEMATOCRIT 34 % (35-52); HEMOGLOBIN 11.3 g/dL (11.5-16.0); LYMPHOCYTES # (AUTO) 1.4 10^3/uL (1.0-4.0); LYMPHOCYTES % (AUTO) 16 % (12-44); MEAN CORPUSCULAR HEMOGLOBIN 31 pg (25-34); MEAN CORPUSCULAR HGB CONC 33 g/dL (32-36); MEAN CORPUSCULAR VOLUME 94 fL (80-99); MEAN PLATELET VOLUME 9.3 fL (9.0-12.2); MONOCYTES # (AUTO) 1.9 10^3/uL (0.0-1.0); MONOCYTES % (AUTO) 21 % (0-12); NEUTROPHILS # (AUTO) 5.5 10^3/uL (1.8-7.8); NEUTROPHILS % (AUTO) 61 % (42-75); PLATELET COUNT 257 10^3/uL (130-400)
[2021-09-04 13:03] LABS: ALBUMIN 3.5 GM/DL (3.2-4.5); BILIRUBIN,TOTAL 0.3 MG/DL (0.1-1.0); CALCIUM 10.1 MG/DL (8.5-10.1); CREATININE SERUM 0.82 MG/DL (0.60-1.30); POTASSIUM 3.9 MMOL/L (3.6-5.0); TOTAL PROTEIN 7.2 GM/DL (6.4-8.2)
[2021-09-18 11:56] LABS: BASOPHILS % (AUTO) 0 % (0-10); EOSINOPHILS # (AUTO) 0.1 10^3/uL (0.0-0.3); EOSINOPHILS % (AUTO) 2 % (0-10); HEMATOCRIT 34 % (35-52); HEMOGLOBIN 11.3 g/dL (11.5-16.0); LYMPHOCYTES # (AUTO) 1.8 10^3/uL (1.0-4.0); LYMPHOCYTES % (AUTO) 26 % (12-44); MEAN CORPUSCULAR HEMOGLOBIN 31 pg (25-34); MEAN CORPUSCULAR HGB CONC 34 g/dL (32-36); MEAN CORPUSCULAR VOLUME 93 fL (80-99); MEAN PLATELET VOLUME 9.3 fL (9.0-12.2); MONOCYTES # (AUTO) 1.9 10^3/uL (0.0-1.0); MONOCYTES % (AUTO) 28 % (0-12); NEUTROPHILS % (AUTO) 44 % (42-75); PLATELET COUNT 235 10^3/uL (130-400); WHITE BLOOD COUNT 6.8 10^3/uL (4.3-11.0)
[2021-09-18 12:19] LABS: ALBUMIN 3.5 GM/DL (3.2-4.5); BILIRUBIN,TOTAL 0.4 MG/DL (0.1-1.0); CALCIUM 9.9 MG/DL (8.5-10.1); CREATININE SERUM 0.81 MG/DL (0.60-1.30); POTASSIUM 3.5 MMOL/L (3.6-5.0); TOTAL PROTEIN 7.2 GM/DL (6.4-8.2)
[~2021-10-03] MED LIST changes: -FAMOTIDINE 20MG/2ML IV (PEPCID) IV ONE; +FAMOTIDINE 20MG/2ML IV (PEPCID) IV SCH; -FAMOTIDINE 20MG/2ML IV (PEPCID) ONE; +NS (IVPB) 250 ML ONE; +ONDANSETRON MDV (CANCER CENTER 16 MG, dexAMETHasone INJECTION 10 MG in NS (IVPB) 50 ML IV SCH
[2021-10-03 12:50] LABS: BASOPHILS % (AUTO) 0 % (0-10); EOSINOPHILS # (AUTO) 0.1 10^3/uL (0.0-0.3); EOSINOPHILS % (AUTO) 2 % (0-10); HEMATOCRIT 34 % (35-52); HEMOGLOBIN 11.4 g/dL (11.5-16.0); LYMPHOCYTES # (AUTO) 1.7 10^3/uL (1.0-4.0); LYMPHOCYTES % (AUTO) 23 % (12-44); MEAN CORPUSCULAR HEMOGLOBIN 32 pg (25-34); MEAN CORPUSCULAR HGB CONC 33 g/dL (32-36); MEAN CORPUSCULAR VOLUME 95 fL (80-99); MONOCYTES # (AUTO) 1.7 10^3/uL (0.0-1.0); MONOCYTES % (AUTO) 24 % (0-12); NEUTROPHILS # (AUTO) 3.6 10^3/uL (1.8-7.8); NEUTROPHILS % (AUTO) 51 % (42-75); PLATELET COUNT 249 10^3/uL (130-400); WHITE BLOOD COUNT 7.1 10^3/uL (4.3-11.0)
[2021-10-03 13:06] LABS: ALBUMIN 3.5 GM/DL (3.2-4.5)
[2021-10-03 13:09] LABS: TOTAL PROTEIN 7.2 GM/DL (6.4-8.2)
[2021-10-03 13:11] LABS: BILIRUBIN,TOTAL 0.3 MG/DL (0.1-1.0)
[2021-10-03 13:13] LABS: CREATININE SERUM 0.95 MG/DL (0.60-1.30)
== END | disposition home or self-care (01) ==
LOC: ONC 09-04 12:20
PROVIDERS: ATTEND Internal Medicine
DX: Z51.11 Encounter for antineoplastic chemotherapy (principal); Z45.2 Encounter for adjustment and management of vascular access device; C16.0 Malignant neoplasm of cardia; C78.01 Secondary malignant neoplasm of right lung; D64.9 Anemia, unspecified; R20.8 Other disturbances of skin sensation
CPT/HCPCS: 36591; 80053; 82378; 85025; 86301; 96360; 96367; 96375; 96413; 99213

== ENCOUNTER 2021-11-01 12:00 | Outpatient (RCR) | payer MEDICARE ==
[2021-10-16 12:39] LABS: BASOPHILS % (AUTO) 0 % (0-10); EOSINOPHILS # (AUTO) 0.1 10^3/uL (0.0-0.3); EOSINOPHILS % (AUTO) 1 % (0-10); HEMATOCRIT 35 % (35-52); HEMOGLOBIN 11.7 g/dL (11.5-16.0); LYMPHOCYTES # (AUTO) 1.8 10^3/uL (1.0-4.0); LYMPHOCYTES % (AUTO) 22 % (12-44); MEAN CORPUSCULAR HEMOGLOBIN 32 pg (25-34); MEAN CORPUSCULAR HGB CONC 33 g/dL (32-36); MEAN CORPUSCULAR VOLUME 96 fL (80-99); MEAN PLATELET VOLUME 8.7 fL (9.0-12.2); MONOCYTES # (AUTO) 1.5 10^3/uL (0.0-1.0); MONOCYTES % (AUTO) 17 % (0-12); NEUTROPHILS # (AUTO) 4.9 10^3/uL (1.8-7.8); NEUTROPHILS % (AUTO) 59 % (42-75); PLATELET COUNT 292 10^3/uL (130-400); WHITE BLOOD COUNT 8.3 10^3/uL (4.3-11.0)
[2021-10-16 13:08] LABS: ALBUMIN 3.6 GM/DL (3.2-4.5); BILIRUBIN,TOTAL 0.4 MG/DL (0.1-1.0); CREATININE SERUM 0.89 MG/DL (0.60-1.30); POTASSIUM 4.1 MMOL/L (3.6-5.0); TOTAL PROTEIN 7.5 GM/DL (6.4-8.2)
[2021-10-30 13:39] LABS: BASOPHILS % (AUTO) 0 % (0-10); EOSINOPHILS # (AUTO) 0.2 10^3/uL (0.0-0.3); EOSINOPHILS % (AUTO) 2 % (0-10); HEMATOCRIT 35 % (35-52); HEMOGLOBIN 11.6 g/dL (11.5-16.0); LYMPHOCYTES % (AUTO) 22 % (12-44); MEAN CORPUSCULAR HEMOGLOBIN 32 pg (25-34); MEAN CORPUSCULAR HGB CONC 34 g/dL (32-36); MEAN CORPUSCULAR VOLUME 96 fL (80-99); MEAN PLATELET VOLUME 9.1 fL (9.0-12.2); MONOCYTES # (AUTO) 1.5 10^3/uL (0.0-1.0); MONOCYTES % (AUTO) 16 % (0-12); NEUTROPHILS # (AUTO) 5.5 10^3/uL (1.8-7.8); NEUTROPHILS % (AUTO) 60 % (42-75); PLATELET COUNT 272 10^3/uL (130-400); WHITE BLOOD COUNT 9.2 10^3/uL (4.3-11.0)
[2021-10-30 13:57] LABS: ALBUMIN 3.5 GM/DL (3.2-4.5); BILIRUBIN,TOTAL 0.4 MG/DL (0.1-1.0); CALCIUM 9.8 MG/DL (8.5-10.1); CREATININE SERUM 0.95 MG/DL (0.60-1.30); POTASSIUM 3.7 MMOL/L (3.6-5.0); TOTAL PROTEIN 7.4 GM/DL (6.4-8.2)
[~2021-11-01 12:00] MED LIST changes: -D5W 500 ML IV SOLUTION 500 ML IV SCH; -D5W IV SCH; -FAMOTIDINE 20MG/2ML IV (PEPCID) IV SCH; -FOSAPREPITANT (CANCER CENTER) 150 MG in NS (IVPB) CANCER CENTER ONLY 150 ML IV SCH; -OXALIPLATIN IV SCH; -PALONOSETRON HCL 0.25 MG, dexAMETHasone INJECTION 10 MG in NS (IVPB) 50 ML IV SCH; -diphenhydrAMINE 25 MG TAB (BENADRYL) PO SCH
== END 2021-11-02 | disposition home or self-care (01) ==
LOC: ONC 12:00
PROVIDERS: ATTEND Internal Medicine
DX: Z45.2 Encounter for adjustment and management of vascular access device (principal); C16.0 Malignant neoplasm of cardia; D64.9 Anemia, unspecified; D63.0 Anemia in neoplastic disease; G62.9 Polyneuropathy, unspecified
CPT/HCPCS: 80053; 85025; 96375; 96521; G0463; 36591; 82378; 86301

== ENCOUNTER → 2021-11-07 | Outpatient (CLI) | payer MEDICARE ==
[~2021-11-07] MED LIST changes: +CATHETER FLUSH 10 ML SYR IV PRN; -FLUOROURACIL IV SCH; -HEParin (CENTRAL IV FLUSH) 500 UNIT/5 ML SYR IV PRN; +HOLD METFORMIN - RECEIVED CONTRAST 20 ML VIAL IV SCH; +IOHEXOL 350 MG/ML 100 ML (OMNIPAQUE 350) VIAL IV ONE; -NS (IVPB) 250 ML ONE; +NS 100 ML (IVPB) BAG IV ONE; -NS IV SCH; -ONDANSETRON MDV (CANCER CENTER 16 MG, dexAMETHasone INJECTION 10 MG in NS (IVPB) 50 ML IV SCH
--- NOTE | 2021-11-07 16:34 | Diagnostic Imaging Report ---
EXAMINATION: CT chest, abdomen and pelvis with intravenous contrast. TECHNIQUE: Multiple contiguous axial images were obtained through the chest, abdomen and pelvis after the uneventful administration of intravenous contrast. All CT scans use one or more of the following dose optimizing techniques: automated exposure control, MA and/or KvP adjustment based on patient size and exam type or iterative reconstruction. HISTORY: Esophageal cancer COMPARISON: 05/25/2021 FINDINGS: There is a persistent area of consolidation in the right middle lobe. It measures 3.5 x 2.5 cm, previously 3.8 x 2.5 cm. There is bibasilar atelectasis or scarring. No new nodules. No pleural effusion. No pneumothorax. There is no axillary or supraclavicular lymphadenopathy. There is no mediastinal lymphadenopathy. Right-sided Port-A-Cath is present. There is unchanged wall thickening of distal esophagus. There is a suture line at the gastroesophageal junction. Heart size is normal. There are moderate coronary artery calcifications. No pericardial effusion. Aorta is normal in caliber. The liver is normal without focal lesion. There is no biliary ductal dilation. Gallbladder is normal. Pancreas is normal. Spleen is normal. Adrenal glands are normal. There are simple cysts in the kidneys. No suspicious renal lesions. There is no hydronephrosis. Bladder is obscured by streak artifact from hip prostheses. Bowel is normal in caliber without obstruction or inflammation. No free fluid or air. No abdominal or pelvic lymphadenopathy. Aorta is normal in caliber without aneurysm. There are no suspicious osseus lesions. There are bilateral total hip arthroplasties. IMPRESSION: 1. Unchanged distal esophageal wall thickening. 2. Unchanged area of consolidation in the right middle lobe. Dictated by: Dictated on workstation # [id number]
== END ==
LOC: RAD 11:15
PROVIDERS: ATTEND Internal Medicine
DX: C16.0 Malignant neoplasm of cardia (principal)
CPT/HCPCS: 71260; 74177

== ENCOUNTER 2021-11-29 09:44 | Outpatient (RCR) | payer MEDICARE ==
[2021-11-13 12:13] LABS: BASOPHILS # (AUTO) 0.1 10^3/uL (0.0-0.1); BASOPHILS % (AUTO) 1 % (0-10); EOSINOPHILS # (AUTO) 0.1 10^3/uL (0.0-0.3); EOSINOPHILS % (AUTO) 1 % (0-10); HEMATOCRIT 36 % (35-52); HEMOGLOBIN 12.1 g/dL (11.5-16.0); LYMPHOCYTES # (AUTO) 2.3 10^3/uL (1.0-4.0); LYMPHOCYTES % (AUTO) 25 % (12-44); MEAN CORPUSCULAR HEMOGLOBIN 32 pg (25-34); MEAN CORPUSCULAR HGB CONC 33 g/dL (32-36); MEAN CORPUSCULAR VOLUME 96 fL (80-99); MEAN PLATELET VOLUME 9.2 fL (9.0-12.2); MONOCYTES # (AUTO) 1.5 10^3/uL (0.0-1.0); MONOCYTES % (AUTO) 16 % (0-12); NEUTROPHILS # (AUTO) 5.4 10^3/uL (1.8-7.8); NEUTROPHILS % (AUTO) 58 % (42-75); PLATELET COUNT 285 10^3/uL (130-400); WHITE BLOOD COUNT 9.4 10^3/uL (4.3-11.0)
[2021-11-13 12:27] LABS: ALBUMIN 3.7 GM/DL (3.2-4.5); BILIRUBIN,TOTAL 0.4 MG/DL (0.1-1.0); CALCIUM 9.9 MG/DL (8.5-10.1); CREATININE SERUM 1.05 MG/DL (0.60-1.30); TOTAL PROTEIN 7.6 GM/DL (6.4-8.2)
[2021-11-27 10:18] LABS: BASOPHILS % (AUTO) 1 % (0-10); EOSINOPHILS # (AUTO) 0.1 10^3/uL (0.0-0.3); EOSINOPHILS % (AUTO) 2 % (0-10); HEMATOCRIT 36 % (35-52); HEMOGLOBIN 11.9 g/dL (11.5-16.0); LYMPHOCYTES # (AUTO) 1.7 10^3/uL (1.0-4.0); LYMPHOCYTES % (AUTO) 24 % (12-44); MEAN CORPUSCULAR HEMOGLOBIN 32 pg (25-34); MEAN CORPUSCULAR HGB CONC 33 g/dL (32-36); MEAN CORPUSCULAR VOLUME 97 fL (80-99); MEAN PLATELET VOLUME 8.8 fL (9.0-12.2); MONOCYTES # (AUTO) 1.3 10^3/uL (0.0-1.0); MONOCYTES % (AUTO) 19 % (0-12); NEUTROPHILS # (AUTO) 3.7 10^3/uL (1.8-7.8); NEUTROPHILS % (AUTO) 54 % (42-75); PLATELET COUNT 244 10^3/uL (130-400); WHITE BLOOD COUNT 6.9 10^3/uL (4.3-11.0)
[2021-11-27 10:35] LABS: ALBUMIN 3.6 GM/DL (3.2-4.5); BILIRUBIN,TOTAL 0.5 MG/DL (0.1-1.0); CREATININE SERUM 1.03 MG/DL (0.60-1.30); POTASSIUM 3.9 MMOL/L (3.6-5.0); TOTAL PROTEIN 7.1 GM/DL (6.4-8.2)
[~2021-11-29 09:44] MED LIST changes: -CATHETER FLUSH 10 ML SYR IV PRN; +FLUOROURACIL IV SCH; +HEParin (CENTRAL IV FLUSH) 500 UNIT/5 ML SYR IV PRN; -HOLD METFORMIN - RECEIVED CONTRAST 20 ML VIAL IV SCH; -IOHEXOL 350 MG/ML 100 ML (OMNIPAQUE 350) VIAL IV ONE; +NS (IVPB) 250 ML ONE; -NS 100 ML (IVPB) BAG IV ONE; +NS IV SCH; +ONDANSETRON MDV (CANCER CENTER 16 MG, dexAMETHasone INJECTION 10 MG in NS (IVPB) 50 ML IV SCH
== END 2021-12-03 | disposition home or self-care (01) ==
LOC: ONC 09:44
PROVIDERS: ATTEND Internal Medicine
DX: Z45.2 Encounter for adjustment and management of vascular access device (principal); C16.0 Malignant neoplasm of cardia; D64.9 Anemia, unspecified; D63.0 Anemia in neoplastic disease; G62.9 Polyneuropathy, unspecified
CPT/HCPCS: 80053; 82378; 85025; 86301; 96375; 96521; G0463; 36591; 99214

== ENCOUNTER 2022-03-19 11:35 | Outpatient (RCR) | payer MEDICARE ==
[~2022-03-19 11:35] MED LIST changes: +NS (IVPB) 250 ML IV SCH; -NS (IVPB) 250 ML ONE
[2022-03-19 12:34] LABS: BASOPHILS % (AUTO) 0 % (0-10); EOSINOPHILS # (AUTO) 0.3 10^3/uL (0.0-0.3); EOSINOPHILS % (AUTO) 4 % (0-10); HEMATOCRIT 31 % (35-52); HEMOGLOBIN 9.5 g/dL (11.5-16.0); LYMPHOCYTES # (AUTO) 1.8 10^3/uL (1.0-4.0); LYMPHOCYTES % (AUTO) 22 % (12-44); MEAN CORPUSCULAR HEMOGLOBIN 27 pg (25-34); MEAN CORPUSCULAR HGB CONC 31 g/dL (32-36); MEAN CORPUSCULAR VOLUME 89 fL (80-99); MEAN PLATELET VOLUME 9.1 fL (9.0-12.2); MONOCYTES # (AUTO) 0.8 10^3/uL (0.0-1.0); MONOCYTES % (AUTO) 10 % (0-12); NEUTROPHILS # (AUTO) 5.2 10^3/uL (1.8-7.8); NEUTROPHILS % (AUTO) 64 % (42-75); PLATELET COUNT 424 10^3/uL (130-400); WHITE BLOOD COUNT 8.2 10^3/uL (4.3-11.0)
[2022-03-19 12:53] LABS: ALBUMIN 3.7 GM/DL (3.2-4.5); BILIRUBIN,TOTAL 0.3 MG/DL (0.1-1.0); CALCIUM 10.3 MG/DL (8.5-10.1); CREATININE SERUM 0.82 MG/DL (0.60-1.30); POTASSIUM 4.1 MMOL/L (3.6-5.0); TOTAL PROTEIN 7.4 GM/DL (6.4-8.2)
== END 2022-04-04 | disposition home or self-care (01) ==
LOC: ONC 11:35
PROVIDERS: ATTEND Internal Medicine
DX: Z45.2 Encounter for adjustment and management of vascular access device (principal); C16.0 Malignant neoplasm of cardia; D64.9 Anemia, unspecified; D63.0 Anemia in neoplastic disease; G62.9 Polyneuropathy, unspecified; Z92.21 Personal history of antineoplastic chemotherapy
CPT/HCPCS: 80053; 82378; 82607; 82728; 83540; 83550; 83921; 85025; 86301; G0463; 36591

== ENCOUNTER → 2022-04-09 | Outpatient (CLI) | payer MEDICARE ==
[~2022-04-09] MED LIST changes: +CATHETER FLUSH 10 ML SYR IV PRN; -FLUOROURACIL IV SCH; -HEParin (CENTRAL IV FLUSH) 500 UNIT/5 ML SYR IV PRN; +HOLD METFORMIN - RECEIVED CONTRAST 20 ML VIAL IV SCH; +IOHEXOL 350 MG/ML 100 ML (OMNIPAQUE 350) VIAL IV ONE; -NS (IVPB) 250 ML IV SCH; +NS 100 ML (IVPB) BAG IV ONE; -NS IV SCH; -ONDANSETRON MDV (CANCER CENTER 16 MG, dexAMETHasone INJECTION 10 MG in NS (IVPB) 50 ML IV SCH
--- NOTE | 2022-04-09 14:57 | Diagnostic Imaging Report ---
PROCEDURE: CT chest, abdomen, and pelvis with contrast. TECHNIQUE: Multiple contiguous axial images were obtained through the chest, abdomen, and pelvis after the administration of intravenous contrast. Auto Exposure Controls were utilized during the CT exam to meet ALARA standards for radiation dose reduction. INDICATION: Esophageal cancer. Patient has been off treatment since December 2021. Patient has sustained a fall with pelvic fractures. COMPARISON: Correlation is made to prior CT from 11/07/2021. FINDINGS: CT CHEST: A right chest wall port has the tip within the SVC. No axillary lymphadenopathy is identified. No mediastinal or hilar lymphadenopathy is detected. There is no pericardial or pleural fluid. Significant thickening/mass involving the distal esophagus is again noted. There is a new area of abnormal soft tissue density at the level of the distal esophagus and mass projected immediately posterior to the IVC and in the right paraesophageal location measuring approximately 3.7 x 3.2 cm. Areas of consolidation and air bronchograms involving the right middle lobe persist and may be increased since prior CT. Small nodules in the right middle lobe are also seen. There is a small nodule in the lingula, which appears new measuring [address] ABDOMEN AND PELVIS: Tiny low density in the anterior right lobe of the liver is noted, too small to characterize. No other liver lesions are seen. Gallbladder is unremarkable. There is no biliary ductal dilatation. The pancreas and spleen are unremarkable. No adrenal mass is detected. Kidneys contain small low-attenuation cortical lesions, too small to characterize but likely cysts. Aorta is calcified but nonaneurysmal. No central retroperitoneal or mesenteric lymphadenopathy is seen. The bowel loops are normal in caliber. There is diverticulosis of the descending and sigmoid colon, but no evidence of acute diverticulitis. No free fluid or fluid collection is identified. No pelvic lymphadenopathy is identified. There is a large amount of artifact through the pelvis from bilateral hip prostheses. IMPRESSION: 1. Distal esophageal thickening/mass with a new area of abnormal soft tissue thickening in the right paraesophageal region. There is also development of areas of nodularity in the lung bases, and metastatic nodules cannot be entirely excluded. There is some worsening consolidation and air bronchograms in the right middle lobe since prior CT. 2. Stable CT of the abdomen and pelvis. There is uncomplicated diverticulosis. No abdominal or pelvic lymphadenopathy or evidence of metastatic disease is identified. Dictated by: Dictated on workstation # [id number]
== END ==
LOC: RAD 12:47
PROVIDERS: ATTEND Internal Medicine
DX: C16.0 Malignant neoplasm of cardia (principal); K57.30 Diverticulosis of large intestine without perforation or abscess without bleeding
CPT/HCPCS: 71260; 74177

== ENCOUNTER 2022-05-03 12:55 | Outpatient (RCR) | payer MEDICARE ==
[2022-04-18 11:16] LABS: BASOPHILS % (AUTO) 0 % (0-10); EOSINOPHILS # (AUTO) 0.2 10^3/uL (0.0-0.3); EOSINOPHILS % (AUTO) 2 % (0-10); HEMATOCRIT 32 % (35-52); HEMOGLOBIN 10.4 g/dL (11.5-16.0); LYMPHOCYTES # (AUTO) 1.8 10^3/uL (1.0-4.0); LYMPHOCYTES % (AUTO) 23 % (12-44); MEAN CORPUSCULAR HEMOGLOBIN 27 pg (25-34); MEAN CORPUSCULAR HGB CONC 33 g/dL (32-36); MEAN CORPUSCULAR VOLUME 83 fL (80-99); MEAN PLATELET VOLUME 9.1 fL (9.0-12.2); MONOCYTES # (AUTO) 0.9 10^3/uL (0.0-1.0); MONOCYTES % (AUTO) 12 % (0-12); NEUTROPHILS # (AUTO) 4.8 10^3/uL (1.8-7.8); NEUTROPHILS % (AUTO) 62 % (42-75); PLATELET COUNT 367 10^3/uL (130-400); WHITE BLOOD COUNT 7.7 10^3/uL (4.3-11.0)
[2022-04-18 11:47] LABS: ALBUMIN 3.7 GM/DL (3.2-4.5); BILIRUBIN,TOTAL 0.5 MG/DL (0.1-1.0); CREATININE SERUM 0.82 MG/DL (0.60-1.30); POTASSIUM 3.8 MMOL/L (3.6-5.0); TOTAL PROTEIN 7.5 GM/DL (6.4-8.2)
[2022-05-01 11:30] LABS: BASOPHILS % (AUTO) 1 % (0-10); EOSINOPHILS # (AUTO) 0.3 10^3/uL (0.0-0.3); EOSINOPHILS % (AUTO) 4 % (0-10); HEMATOCRIT 31 % (35-52); HEMOGLOBIN 10.3 g/dL (11.5-16.0); LYMPHOCYTES # (AUTO) 1.7 10^3/uL (1.0-4.0); LYMPHOCYTES % (AUTO) 23 % (12-44); MEAN CORPUSCULAR HEMOGLOBIN 27 pg (25-34); MEAN CORPUSCULAR HGB CONC 33 g/dL (32-36); MEAN CORPUSCULAR VOLUME 82 fL (80-99); MEAN PLATELET VOLUME 8.9 fL (9.0-12.2); MONOCYTES # (AUTO) 0.9 10^3/uL (0.0-1.0); MONOCYTES % (AUTO) 13 % (0-12); NEUTROPHILS # (AUTO) 4.3 10^3/uL (1.8-7.8); NEUTROPHILS % (AUTO) 59 % (42-75); PLATELET COUNT 302 10^3/uL (130-400); WHITE BLOOD COUNT 7.3 10^3/uL (4.3-11.0)
[2022-05-01 11:58] LABS: ALBUMIN 3.6 GM/DL (3.2-4.5); BILIRUBIN,TOTAL 0.3 MG/DL (0.1-1.0); CALCIUM 9.3 MG/DL (8.5-10.1); CREATININE SERUM 1.09 MG/DL (0.60-1.30); POTASSIUM 3.3 MMOL/L (3.6-5.0); TOTAL PROTEIN 6.8 GM/DL (6.4-8.2)
[~2022-05-03] VITALS: Ht 165.1 cm; Wt 77.1 kg
[~2022-05-03 12:55] MED LIST changes: +ATROPINE INJ 0.4 MG/ML SDV IV SCH; -CATHETER FLUSH 10 ML SYR IV PRN; +D5W 500 ML IV SOLUTION 500 ML IV SCH; +D5W IV SCH; +FERRIC CARBOXYMALTOSE INJ 750 MG in NS (IVPB) 250 ML IV SCH; +FLUOROURACIL IV SCH; +FOSAPREPITANT (CANCER CENTER) 150 MG in NS (IVPB) CANCER CENTER ONLY 150 ML IV SCH; +HEParin (CENTRAL IV FLUSH) 500 UNIT/5 ML SYR IV PRN; -HOLD METFORMIN - RECEIVED CONTRAST 20 ML VIAL IV SCH; -IOHEXOL 350 MG/ML 100 ML (OMNIPAQUE 350) VIAL IV ONE; +IRINOTECAN HCL IV SCH; -NS 100 ML (IVPB) BAG IV ONE; +NS IV SCH; +PALONOSETRON HCL 0.25 MG, dexAMETHasone INJECTION 20 MG in NS (IVPB) 50 ML IV SCH
== END 2022-05-05 | disposition home or self-care (01) ==
LOC: ONC 12:55
PROVIDERS: ATTEND Internal Medicine
DX: Z51.11 Encounter for antineoplastic chemotherapy (principal); C16.0 Malignant neoplasm of cardia; D50.9 Iron deficiency anemia, unspecified; G62.9 Polyneuropathy, unspecified; Z92.21 Personal history of antineoplastic chemotherapy
CPT/HCPCS: 36591; 80053; 85025; 86301; 96365; 96367; 96375; 96413; 96416; 99213

== ENCOUNTER 2022-05-30 12:44 | Outpatient (RCR) | payer MEDICARE ==
[2022-05-14 12:29] LABS: BASOPHILS % (AUTO) 0 % (0-10); EOSINOPHILS # (AUTO) 0.2 10^3/uL (0.0-0.3); EOSINOPHILS % (AUTO) 3 % (0-10); HEMATOCRIT 26 % (35-52); HEMOGLOBIN 8.6 g/dL (11.5-16.0); LYMPHOCYTES # (AUTO) 1.5 10^3/uL (1.0-4.0); LYMPHOCYTES % (AUTO) 23 % (12-44); MEAN CORPUSCULAR HEMOGLOBIN 28 pg (25-34); MEAN CORPUSCULAR HGB CONC 34 g/dL (32-36); MEAN CORPUSCULAR VOLUME 83 fL (80-99); MEAN PLATELET VOLUME 8.9 fL (9.0-12.2); MONOCYTES # (AUTO) 1.1 10^3/uL (0.0-1.0); MONOCYTES % (AUTO) 17 % (0-12); NEUTROPHILS # (AUTO) 3.8 10^3/uL (1.8-7.8); NEUTROPHILS % (AUTO) 57 % (42-75); PLATELET COUNT 313 10^3/uL (130-400); WHITE BLOOD COUNT 6.7 10^3/uL (4.3-11.0)
[2022-05-14 12:51] LABS: ALBUMIN 3.2 GM/DL (3.2-4.5); BILIRUBIN,TOTAL 0.5 MG/DL (0.1-1.0); CALCIUM 8.9 MG/DL (8.5-10.1); CREATININE SERUM 0.84 MG/DL (0.60-1.30); POTASSIUM 2.9 MMOL/L (3.6-5.0)
[2022-05-28 12:19] LABS: BASOPHILS % (AUTO) 0 % (0-10); EOSINOPHILS # (AUTO) 0.1 10^3/uL (0.0-0.3); EOSINOPHILS % (AUTO) 1 % (0-10); HEMATOCRIT 27 % (35-52); LYMPHOCYTES # (AUTO) 1.5 10^3/uL (1.0-4.0); LYMPHOCYTES % (AUTO) 20 % (12-44); MEAN CORPUSCULAR HEMOGLOBIN 29 pg (25-34); MEAN CORPUSCULAR HGB CONC 33 g/dL (32-36); MEAN CORPUSCULAR VOLUME 88 fL (80-99); MEAN PLATELET VOLUME 8.7 fL (9.0-12.2); MONOCYTES # (AUTO) 1.1 10^3/uL (0.0-1.0); MONOCYTES % (AUTO) 15 % (0-12); NEUTROPHILS # (AUTO) 4.7 10^3/uL (1.8-7.8); NEUTROPHILS % (AUTO) 64 % (42-75); PLATELET COUNT 370 10^3/uL (130-400); WHITE BLOOD COUNT 7.4 10^3/uL (4.3-11.0)
[2022-05-28 12:37] LABS: ALBUMIN 3.2 GM/DL (3.2-4.5); BILIRUBIN,TOTAL 0.5 MG/DL (0.1-1.0); CALCIUM 9.4 MG/DL (8.5-10.1); CREATININE SERUM 0.71 MG/DL (0.60-1.30); POTASSIUM 3.8 MMOL/L (3.6-5.0); TOTAL PROTEIN 6.2 GM/DL (6.4-8.2)
[~2022-05-30 12:44] MED LIST changes: +ATROPINE INJ 0.4 MG/ML SDV IV SCH; -CATHETER FLUSH 10 ML SYR IV PRN; +D5W 500 ML IV SOLUTION 500 ML IV SCH; +D5W IV SCH; +FERRIC CARBOXYMALTOSE INJ 750 MG in NS (IVPB) 250 ML IV SCH; +FLUOROURACIL IV SCH; +FOSAPREPITANT (CANCER CENTER) 150 MG in NS (IVPB) CANCER CENTER ONLY 150 ML IV SCH; +HEParin (CENTRAL IV FLUSH) 500 UNIT/5 ML SYR IV PRN; -IOHEXOL 350 MG/ML 100 ML (OMNIPAQUE 350) VIAL IV ONE; +IRINOTECAN HCL IV SCH; -NS 100 ML (IVPB) BAG IV ONE; +NS IV SCH; +PALONOSETRON HCL 0.25 MG, dexAMETHasone INJECTION 20 MG in NS (IVPB) 50 ML IV SCH
[2022-05-30] MEDS ORDERED: NS IV 500 ML 500 ML ONE (12:57)
== END 2022-06-05 | disposition home or self-care (01) ==
LOC: ONC 12:44
PROVIDERS: ATTEND Internal Medicine
DX: Z51.11 Encounter for antineoplastic chemotherapy (principal); Z45.2 Encounter for adjustment and management of vascular access device; C16.0 Malignant neoplasm of cardia; C78.01 Secondary malignant neoplasm of right lung; D50.9 Iron deficiency anemia, unspecified; G62.9 Polyneuropathy, unspecified
CPT/HCPCS: 80053; 85025; 86301; 96367; 96375; 96413; 96521; G0463; 36591

== ENCOUNTER → 2022-05-30 | Outpatient (CLI) | payer MEDICARE ==
[~2022-05-30] MED LIST changes: -ATROPINE INJ 0.4 MG/ML SDV IV SCH; +CATHETER FLUSH 10 ML SYR IV PRN; -D5W 500 ML IV SOLUTION 500 ML IV SCH; -D5W IV SCH; -FERRIC CARBOXYMALTOSE INJ 750 MG in NS (IVPB) 250 ML IV SCH; -FLUOROURACIL IV SCH; -FOSAPREPITANT (CANCER CENTER) 150 MG in NS (IVPB) CANCER CENTER ONLY 150 ML IV SCH; -HEParin (CENTRAL IV FLUSH) 500 UNIT/5 ML SYR IV PRN; +IOHEXOL 350 MG/ML 100 ML (OMNIPAQUE 350) VIAL IV ONE; -IRINOTECAN HCL IV SCH; +NS 100 ML (IVPB) BAG IV ONE; -NS IV SCH; -PALONOSETRON HCL 0.25 MG, dexAMETHasone INJECTION 20 MG in NS (IVPB) 50 ML IV SCH
--- NOTE | 2022-05-30 15:17 | Diagnostic Imaging Report ---
PROCEDURE: CT chest, abdomen, and pelvis with contrast. TECHNIQUE: Multiple contiguous axial images were obtained through the chest, abdomen, and pelvis after the administration of intravenous contrast. Auto Exposure Controls were utilized during the CT exam to meet ALARA standards for radiation dose reduction. INDICATION: Esophageal carcinoma, follow-up. FINDINGS: Correlation is made with prior CT from 04/09/2022. CT CHEST: Right chest wall port has the tip at the SVC right atrial junction. No axillary lymphadenopathy is detected. No definite mediastinal or hilar lymphadenopathy is identified. Soft tissue thickening and mass involving the distal esophagus is again noted. The right paraesophageal soft tissue density noted previously persists it is difficult to separate mass from lung consolidation. This area of soft tissue mass/consolidation measures approximately 5.0 x 3.0 cm compared with 3.7 x 3.2 cm on prior. There continues to be significant consolidation and air bronchograms in the right middle lobe. No pericardial or pleural fluid is detected. Lingular nodule is stable at 8 to 9 mm. Areas of nodularity in the right middle lobe are stable. No new mass is detected. IMPRESSION: Distal esophageal mass with associated paraesophageal soft tissue mass, similar to perhaps slightly increased when compared with exam from April. There continues to be significant consolidation in the right middle lobe. Areas of nodularity are stable. CT ABDOMEN/PELVIS: The liver appears stable. Gallbladder is unremarkable. There is no biliary ductal dilatation. Pancreas and spleen are unremarkable. No adrenal mass is detected. Kidneys contain cortical low-attenuation lesions suggestive of cysts. Aorta is nonaneurysmal. No central retroperitoneal or mesenteric lymphadenopathy is seen. Bowel loops are normal caliber. There is diverticulosis of the sigmoid. There is no evidence of acute diverticulitis. There is no ascites. No pelvic lymphadenopathy is detected. There are postop changes involving bilateral hips with bilateral hip prostheses. IMPRESSION: Stable CT of the abdomen and pelvis. There is no evidence of adenopathy or metastatic disease. Dictated by: Dictated on workstation # [id number]
== END ==
LOC: RAD 14:21
PROVIDERS: ATTEND Internal Medicine Hematology & Oncology
DX: C16.0 Malignant neoplasm of cardia (principal)
CPT/HCPCS: 71260; 74177

== ENCOUNTER 2022-06-11 11:21 | Outpatient (RCR) | payer MEDICARE ==
[2022-06-12] MEDS ORDERED: FAMOTIDINE 20MG/2ML IV (PEPCID) IV PRN (09:45)
[2022-06-12] MEDS ORDERED: PACLITAXEL IV SCH (09:45)
[2022-06-12] MEDS ORDERED: diphenhydrAMINE 50 MG/ML INJ (BENADRYL) IV PRN (09:45)
[2022-06-12] MEDS ORDERED: PALONOSETRON HCL 0.25 MG, dexAMETHasone INJECTION 10 MG in NS (IVPB) 50 ML IV SCH (09:45)
[2022-06-12] MEDS ORDERED: NORMAL SALINE IV SCH (09:45)
[2022-06-12] MEDS ORDERED: RAMUCIRUMAB IV SCH (09:45)
[2022-06-12] MEDS ORDERED: NS IV 1000 ML (CANCER CTR) IV SCH (09:45)
[2022-06-12] MEDS ORDERED: NS IV SCH (09:45)
== END 2022-07-03 | disposition home or self-care (01) ==
LOC: ONC 11:21
PROVIDERS: ATTEND Internal Medicine
DX: C16.0 Malignant neoplasm of cardia (principal); C78.01 Secondary malignant neoplasm of right lung; D50.9 Iron deficiency anemia, unspecified; G62.9 Polyneuropathy, unspecified